=== PATIENT | male | born 1985 | race Caucasian/White ===

== ENCOUNTER 2017-09-20 13:33 | Inpatient (IN) | payer OTHER ==
[2017-09-20] MEDS ORDERED: Mouth Piece, Nicotine* 1 EACH CARTRIDGE INH PRN (14:14)
[2017-09-20] MEDS ORDERED: Nicotine Inhaler* 10 MG AMP INH ONE (14:14)
[2017-09-20 14:33] LABS: ABS Basophils 0 10^3/ul (0-0.2); ABS Eosinophils 0.2 10^3/ul (0-0.6); ABS Monocytes 0.9 10^3/ul (0-0.8); ABS Neutrophils 7.7 10^3/ul (1.5-7.7); ABS Nucleated RBC 0 10^3/ul; Eosinophil % 1.6 % (0-6); Hematocrit 45 % (42-52); Lymphocyte % 18.8 % (25-47); Mean Corpuscular HGB Conc 35 g/dl (31-36); Mean Corpuscular Hemoglobin 31 pg (27-31); Mean Corpuscular Volume 87 fL (80-94); Mean Platelet Volume 8 um3 (7.4-10.4); Nucleated Red Blood Cells % 0; Platelet Count 362 10^3/ul (150-450); Red Blood Count 5.17 10^6/ul (4.0-5.4); Red Cell Distribution Width 13 % (10.5-15); White Blood Count 10.9 10^3/ul (3.5-10.8)
[2017-09-20 14:41] LABS: Urine Appearance Clear; Urine Blood 2+ (Negative); Urine Color Colorless; Urine Ketones Negative (Negative); Urine Protein Negative (Negative); Urine Specific Gravity 1.002 (1.010-1.030); Urine Urobilinogen Negative (Negative)
[2017-09-20 14:57] LABS: EGFR Non-African American 119.4 (>60)
--- NOTE | 2017-09-20 19:07 | ED ---
Psychiatric Complaint - HPI Summary HPI Summary: Pt here w/ SI w/ plan. Reports he has Bipolar type 1 and takes latuda. This was recently increased and he's been feeling better but recent trigger of being laid off at work has triggered financial stress and he now reports SI w/ plan. Plans to take entire bottle of lisinopril and metoprolol - "bradycardia wouldn' t be a bad way to go". Denies taking anything today - just thought about it. H/ o suicide attempt in his youth - took a bottle of adderral and came here for charcoal tx. Has tried with pills a couple of times since but not as severe per pt's account. Denies any physical complaints today - has had a head cold but tolerating well. Smokes daily. Drinks occasionally. No drugs. - History Of Current Complaint Chief Complaint: EDMentalHealth Time Seen by Provider: 09/20/17 13:48 Hx Obtained From: Patient - Allergies/Home Medications Allergies/Adverse Reactions: Allergies Allergy/AdvReac Type Severity Reaction Status Date / Time Erythromycin Allergy Unknown Unknown Verified 01/16/15 17:37 Reaction Details Home Medications: Home Medications Amphetamine/Dextroamph ER(NF) [Adderal XR (NF)] 5 mg PO QAM 09/20/17 [History Confirmed 09/20/17] Lisinopril/HCTZ 20/12.5(NF) [Zestoretic 20/12.5(NF)] 1 tab PO DAILY 09/20/17 [ History Confirmed 09/20/17] Metoprolol Tartrate TAB* [Lopressor TAB*] 50 mg PO DAILY 09/20/17 [History Confirmed 09/20/17] cloNIDine TAB* [Catapres 0.1 MG TAB*] 0.2 mg PO DAILY 09/20/17 [History Confirmed 09/20/17] PMH/Surg Hx/FS Hx/Imm Hx Previously Healthy: Yes Endocrine/Hematology History: Denies: Hx Anticoagulant Therapy, Hx Diabetes, Hx Thyroid Disease Cardiovascular History: Reports: Hx Hypertension - tx'd w/ lisinopril, Other Cardiovascular Problems/Disorders - tachycardia - tx'd w/ metoprolol Denies: Hx Pacemaker/ICD Respiratory History: Denies: Hx Asthma, Hx Chronic Obstructive Pulmonary Disease (COPD) GI History: Denies: Hx Ulcer History: Denies: Hx Renal Disease Musculoskeletal History: Denies: Hx Arthritis, Hx Back Problems, Hx Bursitis, Hx Congenital Bone Abnormalities, Hx Fibromyalgia, Hx Gout, Hx Orthopedic Injury, Hx Osteoporosis, Hx Scoliosis, Hx Tendonitis, Other Musculoskeletal History Neurological History: Denies: Hx Dementia, Hx Seizures Psychiatric History: Reports: Hx Inpatient Treatment, Hx Community Mental Health Tx, Hx Bipolar Disorder, Hx Suicide Attempt - 3 in the past via pills per pt Denies: Hx Eating Disorder, Hx of Violent Episodes Against Others, Hx Substance Abuse - Surgical History Surgery Procedure, Year, and Place: Myringotomy Infectious Disease History: No Infectious Disease History: Denies: Hx Clostridium Difficile, Hx Hepatitis, Hx Human Immunodeficiency Virus (HIV), Hx of Known/Suspected MRSA, Hx Shingles, Hx Tuberculosis, Traveled Outside the [place] in Last 30 Days - Family History Known Family History: Positive: Other - mental health d/o's - Social History 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 Negative: Shortness Of Breath Gastrointestinal: Negative Negative: Abdominal Pain, Vomiting, Diarrhea, Nausea Positive: no symptoms reported Musculoskeletal: Negative Skin: Negative Neurological: Negative Psychological: Other - si All Other Systems Reviewed And Are Negative: Yes Physical Exam Triage Information Reviewed: Yes Vital Signs On Initial Exam: Initial Vitals Temp Pulse Resp BP Pulse Ox 99.2 F 79 18 153/93 99 09/20/17 13:37 09/20/17 13:37 09/20/17 13:37 09/20/17 13:37 09/20/17 13:37 Vital Signs Reviewed: Yes Appearance: Positive: Well-Appearing, No Pain Distress, Well-Nourished Skin: Positive: Warm, Skin Color Reflects Adequate Perfusion, Dry Eyes: Positive: Normal, EOMI, Conjunctiva Clear ENT: Positive: Hearing grossly normal, Pharynx normal, Nasal congestion Neck: Positive: Supple, Nontender, No Lymphadenopathy Respiratory/Lung Sounds: Positive: Clear to Auscultation, Breath Sounds Present. Negative: Rales, Rhonchi, Wheezes Cardiovascular: Positive: Normal, RRR, S1, S2 Abdomen Description: Positive: Nontender, Soft Bowel Sounds: Positive: Present Musculoskeletal: Positive: Normal, Strength/ROM Intact Neurological: Positive: Normal, Sensory/Motor Intact, Alert, Oriented to Person Place, Time, CN Intact II-III Psychiatric: Positive: Other - calm, cooperative, good eye contact - matter of fact. SI with plan as in HPI - [place] Coma Scale Coma Scale Total: 15 Diagnostics - Vital Signs Vital Signs Temp Pulse Resp BP Pulse Ox 09/20/17 17:17 98.3 F 58 16 151/79 100 09/20/17 13:37 99.2 F 79 18 153/93 99 - Laboratory Lab Results: Lab Results 09/20/17 09/20/17 09/20/17 Range/Units 14:01 14:01 14:22 WBC (3.5-10.8) 10^3/ul RBC (4.0-5.4) 10^6/ul Hgb (14.0-18.0) g/dl Hct (42-52) % MCV (80-94) fL MCH (27-31) pg MCHC (31-36) g/dl RDW (10.5-15) % Plt Count (150-450) 10^3/ul MPV (7.4-10.4) um3 Neut % (Auto) (38-83) % Lymph % (Auto) (25-47) % [place] % (Auto) (1-9) % Eos % (Auto) (0-6) % Baso % (Auto) (0-2) % Absolute Neuts (auto) (1.5-7.7) 10^3/ul Absolute Lymphs (auto) (1.0-4.8) 10^3/ul Absolute Monos (auto) (0-0.8) 10^3/ul Absolute Eos (auto) (0-0.6) 10^3/ul Absolute Basos (auto) (0-0.2) 10^3/ul Absolute Nucleated RBC 10^3/ul Nucleated RBC % Sodium 137 (133-145) mmol/L Potassium 3.7 (3.5-5.0) mmol/L Chloride 103 (101-111) mmol/L Carbon Dioxide 26 (22-32) mmol/L Anion Gap 8 (2-11) mmol/L BUN 8 (6-24) mg/dL Creatinine 0.77 (0.67-1.17) mg/dL Est GFR ( Amer) 153.6 (>60) Est GFR (Non-Af Amer) 119.4 (>60) BUN/Creatinine Ratio 10.4 (8-20) Glucose 88 (70-100) mg/dL Calcium 9.5 (8.6-10.3) mg/dL Total Bilirubin 0.30 (0.2-1.0) mg/dL AST 19 (13-39) U/L ALT 30 (7-52) U/L Alkaline Phosphatase 73 (34-104) U/L Total Protein 7.4 (6.4-8.9) g/dL Albumin 4.4 (3.2-5.2) g/dL Globulin 3.0 (2-4) g/dL Albumin/Globulin Ratio 1.5 (1-3) TSH 0.98 (0.34-5.60) mcIU/mL Urine Color Colorless Urine Appearance Clear Urine pH 6.0 (5-9) Ur Specific [place] 1.002 L (1.010-1.030) Urine Protein Negative (Negative) Urine Ketones Negative (Negative) Urine Blood 2+ H (Negative) Urine Nitrate Negative (Negative) Urine Bilirubin Negative (Negative) Urine Urobilinogen Negative (Negative) Ur Leukocyte Esterase Negative (Negative) Urine WBC (Auto) Absent (Absent) Urine RBC (Auto) Trace(0-2/hpf) (Absent) Urine Bacteria Absent (Absent) Urine Glucose Negative (Negative) Salicylates < 2.50 (<30) mg/dL Urine Opiates Screen None detected (None Detect) Acetaminophen < 15 mcg/mL Ur Barbiturates Screen None detected (None Detect) Ur Phencyclidine Scrn None detected (None Detect) Ur Amphetamines Screen None detected (None Detect) U Benzodiazepines Scrn None detected (None Detect) Urine Cocaine Screen None detected (None Detect) U Cannabinoids Screen None detected (None Detect) Serum Alcohol < 10 (<10) mg/dL 09/20/17 Range/Units 14:22 WBC 10.9 H (3.5-10.8) 10^3/ul RBC 5.17 (4.0-5.4) 10^6/ul Hgb 16.0 (14.0-18.0) g/dl Hct 45 (42-52) % MCV 87 (80-94) fL MCH 31 (27-31) pg MCHC 35 (31-36) g/dl RDW 13 (10.5-15) % Plt Count 362 (150-450) 10^3/ul MPV 8 (7.4-10.4) um3 Neut % (Auto) 71.4 (38-83) % Lymph % (Auto) 18.8 L (25-47) % [place] % (Auto) 7.9 (1-9) % Eos % (Auto) 1.6 (0-6) % Baso % (Auto) 0.3 (0-2) % Absolute Neuts (auto) 7.7 (1.5-7.7) 10^3/ul Absolute Lymphs (auto) 2.0 (1.0-4.8) 10^3/ul Absolute Monos (auto) 0.9 H (0-0.8) 10^3/ul Absolute Eos (auto) 0.2 (0-0.6) 10^3/ul Absolute Basos (auto) 0 (0-0.2) 10^3/ul Absolute Nucleated RBC 0 10^3/ul Nucleated RBC % 0 Sodium (133-145) mmol/L Potassium (3.5-5.0) mmol/L Chloride (101-111) mmol/L Carbon Dioxide (22-32) mmol/L Anion Gap (2-11) mmol/L BUN (6-24) mg/dL Creatinine (0.67-1.17) mg/dL Est GFR ( Amer) (>60) Est GFR (Non-Af Amer) (>60) BUN/Creatinine Ratio (8-20) Glucose (70-100) mg/dL Calcium (8.6-10.3) mg/dL Total Bilirubin (0.2-1.0) mg/dL AST (13-39) U/L ALT (7-52) U/L Alkaline Phosphatase (34-104) U/L Total Protein (6.4-8.9) g/dL Albumin (3.2-5.2) g/dL Globulin (2-4) g/dL Albumin/Globulin Ratio (1-3) TSH (0.34-5.60) mcIU/mL Urine Color Urine Appearance Urine pH (5-9) Ur Specific [place] (1.010-1.030) Urine Protein (Negative) Urine Ketones (Negative) Urine Blood (Negative) Urine Nitrate (Negative) Urine Bilirubin (Negative) Urine Urobilinogen (Negative) Ur Leukocyte Esterase (Negative) Urine WBC (Auto) (Absent) Urine RBC (Auto) (Absent) Urine Bacteria (Absent) Urine Glucose (Negative) Salicylates (<30) mg/dL Urine Opiates Screen (None Detect) Acetaminophen mcg/mL Ur Barbiturates Screen (None Detect) Ur Phencyclidine Scrn (None Detect) Ur Amphetamines Screen (None Detect) U Benzodiazepines Scrn (None Detect) Urine Cocaine Screen (None Detect) U Cannabinoids Screen (None Detect) Serum Alcohol (<10) mg/dL Result Diagrams: 09/20/17 14:22 09/20/17 14:22 Lab Statement: Any lab studies that have been ordered have been reviewed, and results considered in the medical decision making process. Course/Dx - Course Course Of Treatment: SI w/ plan. Medically cleared. Pending evaluation. Signed out to Martha Guadarrama PA-C. Stable at time of transition of care. - Differential Dx/Clinical Impression Provider Diagnosis: Suicidal ideation Discharge - Discharge Plan Condition: Guarded Disposition: OTHER Discharge Disposition Comment: signed out Referrals: Rod Pollock MD [Primary Care Provider] -
--- NOTE | 2017-09-20 19:24 | PN ---
Progress Note - Progress Note Date of Service: 09/20/17 Note: Patient signed out by Belkis Mena pending MHE After mental health exam patient will be admitted per Dr Chapman Diagnosis: depression Condition:stable Disposition:Admitted
[2017-09-20] MEDS ORDERED: Mouth Piece, Nicotine* 1 EACH CARTRIDGE INH SCH (22:44)
[2017-09-20] MEDS ORDERED: Al Hydrox/Mg Hydrox/Simet LIQ* 30 ML UDC PO PRN (22:44)
[2017-09-20] MEDS ORDERED: Acetaminophen TAB* 325 MG PO PRN (22:44)
[2017-09-20] MEDS: Metoprolol Tartrate TAB* 50 mg PO SCH (22:56)
[2017-09-20] MEDS ORDERED: cloNIDine TAB* 0.1 MG PO SCH (23:00)
[2017-09-20] MEDS: Lurasidone(*) 120 MG TAB PO SCH (23:12)
[2017-09-20] MEDS: Nicotine Inhaler* 10 MG AMP INH PRN (23:16)
[2017-09-21] MEDS: Vitamin THERAPEUTIC TAB PO SCH (08:23)
[2017-09-21] MEDS: Nicotine PATCH 21 MG/24 HR* PATCH TRANSDERM SCH (08:24)
[2017-09-21] MEDS: Lisinopril TAB* 10 MG PO SCH (08:24)
[2017-09-21] MEDS: Amphetamine MIXED SALT TAB* 10 MG TAB PO SCH (08:24)
[2017-09-21] MEDS: Metoprolol Tartrate TAB* 50 mg PO SCH ×2 (08:26→21:03)
[2017-09-21] MEDS: Hydrochlorothiazide TAB* 25 MG PO SCH (08:27)
[2017-09-21] MEDS: Nicotine Inhaler* 10 MG AMP INH PRN ×4 (09:40→19:56)
[2017-09-21] MEDS ORDERED: Divalproex ER TAB(*) 250 MG PO ONE (14:54)
[2017-09-21] MEDS ORDERED: Divalproex ER TAB(*) 250 MG ONE (16:21)
--- NOTE | 2017-09-21 18:23 | ADMNOTE ---
History - Objective HPI: HISTORY AND PHYSICAL Psychiatric Attending History and Physical NAME: Osmar Tapia : 1985 AGE: 31 PROVIDER: Miguel Chang DO DATE OF ADMISSION:08/22/2018 JUSTIFICATION FOR ADMISSION: Patient has a history of bipolar disorder and has been experiencing depressive symptoms for past 3 weeks. He came to hospital due to suicidal ideation. He felt unsafe at home and was having strong urge to take an overdose of his cardiac medications. Patient is at high risk for self harm which meets criteria for inpatient psychiatric level of care. CHIEF COMPLAINT: 'I have suffered alot of losses which has made me depressed and feeling suicidal" HISTORY OF THE PRESENT ILLNESS: 31 yo male with history of ELENITA,Bipolar type I who brought himself to hospital for admission due to 3 week history of depression and recent onset of suicidal ideation with plan to overdose on his cardiac medications. 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 stressors which are determinants of his currrent depression include job loss, of several family members/friends in past 6 months, insufficient funds to pay his bills. symptoms include amotivation, anergia, anhedonia, suicidal ideation with thoughts of overdosing with his cardiac medications, difficulty falling asleep. patient was admitted as voluntary patient to treat his depression and provide for safety PAST PSYCHIATRIC HISTORY: treated by Dr. Darnell at [facility] for past 8 years. diagnosed with ADHD, bipolar I and ELENITA. patient reports he has had recurrent depressions and does experience 1 to 3 day periods of hypomania with racing thoughts, irritability, increased goal direction. reports he had one of these episodes the day prior to admission. patient has been maintaine on Latuda for many years with good success. Latuda was increased from 80 to 120 mg about [address] Darnell. Patient had been maintained on Depakote ER 500 mg since last discharged from psychiatric hospital 4 years ago. patient reports 3 past suicide attempts. Early 20's took an overdose, cut his wrists superficially in 2012 and 2013. Last two suicide attempts he was admitted to [facility]. Past medication trials: Paxil "helped very little", Lamictal but doesnt remember if it helped. no other medications that he can remember. SUBSTANCE ABUSE HISTORY: denies. drinks 6 beers per month. smoked cannabis in teens but stopped using at age 21. Tobacco use: 1 PPD PAST MEDICAL HISTORY: reports history of "tachycardia" and hypertensin. both treated by his PCP reports he had a cardiac workup including holter monitoring which was negative for arrythmia. CURRENT MEDICATIONS: Lisinopril 20 mg daily Metoprolol 50 mg BID Hydrochlorthiazide 12.5 mg QD clonidine 0.4 mg QHS (for insomnia and anxiety) Adderall XR 5 mg QAM ALLERGIES: Erythromycin FAMILY PSYCHIATRIC HISTORY: Father alcohol dependence; maternal uncle completed suicide; maternal grandfather- history of psychiatric hospitalizations. FAMILY/PSYCHOSOCIAL HISTORY: Born in [place] and raised in [place], [place]. primarily raised by his mother. has no siblings. Got his license to be an EMT and volunteers 40 hours per week. worked at [employer] since March 2013. living in [place] currently. 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 worked at [employer] in past but was emotionally overwhelmed so he quit. reports ptsd symptoms from his exposure to trauma/crisis while being EMT. REVIEW OF SYSTEMS: all noncontributory per hospitalist Dr. Darrell Haley H and P on 2017 PHYSICAL EXAMINATION: UNREMARKABLE (NORMAL PHYSICAL EXAMINATION) per hospitalist Dr. Darrell White's H and P on 09/20/2017. Vital Signs HR 88 BP 140/82 RR12 Temp: 98.6 MENTAL STATUS EXAMINATION: Patient is well developed and nourished male. he was dressed casually and had normal hygiene. established rapport easily, made good eye contact. speech normal rate and volume. normal fluency and spontaneity. no psychomotor agitation or slowing Mood: dysphoric affect: full range and congruent with mood. Thought process goal directed coherent and organized. Thought content: endorses low energy, poor motivation, early insomnia, intermittent agitation, suicidal thoughts but contracts to let staff know if he has urge to act on this thoughts. early insomnia. good appetite. Alert and fully oriented. denies HI , AH,VH, paranoid ideation no evidence of delusions. denies obsessions, compulsions. reports moderate anxiety. Insight and judgment are good LABORATORY DATA: Laboratory Last Values WBC 10.9 10^3/ul (3.5-10.8) H 09/20/17 14:22 RBC 5.17 10^6/ul (4.0-5.4) 09/20/17 14:22 Hgb 16.0 g/dl (14.0-18.0) 09/20/17 14:22 Hct 45 % (42-52) 09/20/17 14:22 MCV 87 fL (80-94) 09/20/17 14:22 MCH 31 pg (27-31) 09/20/17 14:22 MCHC 35 g/dl (31-36) 09/20/17 14:22 RDW 13 % (10.5-15) 09/20/17 14:22 Plt Count 362 10^3/ul (150-450) 09/20/17 14:22 MPV 8 um3 (7.4-10.4) 09/20/17 14:22 Neut % (Auto) 71.4 % (38-83) 09/20/17 14:22 Lymph % (Auto) 18.8 % (25-47) L 09/20/17 14:22 [place] % (Auto) 7.9 % (1-9) 09/20/17 14:22 Eos % (Auto) 1.6 % (0-6) 09/20/17 14:22 Baso % (Auto) 0.3 % (0-2) 09/20/17 14:22 Absolute Neuts (auto) 7.7 10^3/ul (1.5-7.7) 09/20/17 14:22 Absolute Lymphs (auto) 2.0 10^3/ul (1.0-4.8) 09/20/17 14:22 Absolute Monos (auto) 0.9 10^3/ul (0-0.8) H 09/20/17 14:22 Absolute Eos (auto) 0.2 10^3/ul (0-0.6) 09/20/17 14:22 Absolute Basos (auto) 0 10^3/ul (0-0.2) 09/20/17 14:22 Absolute Nucleated RBC 0 10^3/ul 09/20/17 14:22 Nucleated RBC % 0 09/20/17 14:22 Sodium 137 mmol/L (133-145) 09/20/17 14:22 Potassium 3.7 mmol/L (3.5-5.0) 09/20/17 14:22 Chloride 103 mmol/L (101-111) 09/20/17 14:22 Carbon Dioxide 26 mmol/L (22-32) 09/20/17 14:22 Anion Gap 8 mmol/L (2-11) 09/20/17 14:22 BUN 8 mg/dL (6-24) 09/20/17 14:22 Creatinine 0.77 mg/dL (0.67-1.17) 09/20/17 14:22 Est GFR ( Amer) 153.6 (>60) 09/20/17 14:22 Est GFR (Non-Af Amer) 119.4 (>60) 09/20/17 14:22 BUN/Creatinine Ratio 10.4 (8-20) 09/20/17 14:22 Glucose 88 mg/dL (70-100) 09/20/17 14:22 Calcium 9.5 mg/dL (8.6-10.3) 09/20/17 14:22 Total Bilirubin 0.30 mg/dL (0.2-1.0) 09/20/17 14:22 AST 19 U/L (13-39) 09/20/17 14:22 ALT 30 U/L (7-52) 09/20/17 14:22 Alkaline Phosphatase 73 U/L (34-104) 09/20/17 14:22 Total Protein 7.4 g/dL (6.4-8.9) 09/20/17 14:22 Albumin 4.4 g/dL (3.2-5.2) 09/20/17 14:22 Globulin 3.0 g/dL (2-4) 09/20/17 14:22 Albumin/Globulin Ratio 1.5 (1-3) 09/20/17 14:22 TSH 0.98 mcIU/mL (0.34-5.60) 09/20/17 14:22 Urine Color Colorless 09/20/17 14:01 Urine Appearance Clear 09/20/17 14:01 Urine pH 6.0 (5-9) 09/20/17 14:01 Ur Specific [place] 1.002 (1.010-1.030) L 09/20/17 14:01 Urine Protein Negative (Negative) 09/20/17 14:01 Urine Ketones Negative (Negative) 09/20/17 14:01 Urine Blood 2+ (Negative) H 09/20/17 14:01 Urine Nitrate Negative (Negative) 09/20/17 14:01 Urine Bilirubin Negative (Negative) 09/20/17 14:01 Urine Urobilinogen Negative (Negative) 09/20/17 14:01 Ur Leukocyte Esterase Negative (Negative) 09/20/17 14:01 Urine WBC (Auto) Absent (Absent) 09/20/17 14:01 Urine RBC (Auto) Trace(0-2/hpf) (Absent) 09/20/17 14:01 Urine Bacteria Absent (Absent) 09/20/17 14:01 Urine Glucose Negative (Negative) 09/20/17 14:01 Salicylates < 2.50 mg/dL (<30) 09/20/17 14:22 Urine Opiates Screen None detected (None Detect) 09/20/17 14:01 Acetaminophen < 15 mcg/mL 09/20/17 14:22 Ur Barbiturates Screen None detected (None Detect) 09/20/17 14:01 Ur Phencyclidine Scrn None detected (None Detect) 09/20/17 14:01 Ur Amphetamines Screen None detected (None Detect) 09/20/17 14:01 U Benzodiazepines Scrn None detected (None Detect) 09/20/17 14:01 Urine Cocaine Screen None detected (None Detect) 09/20/17 14:01 U Cannabinoids Screen None detected (None Detect) 09/20/17 14:01 Serum Alcohol < 10 mg/dL (<10) 09/20/17 14:22 IMPRESSION: 31 yo hiistory of bipolar I, ADHD, and ELENITA who presents with mixed mood symptoms which includes 3 week history of depressive syndrome and one day of hypomania (yesterday). significant factors which may be partial determinants to his mood instability include discontinuation of depakote ER 2 weeks ago, of several friends/relatives in recent past, loss of job 3 weeks ago due to "lay offs" and financial probelms. patient has been having suicidal ideation with plan to overdose. He requires imminent inpatient level of care due to high risk for injury to self in order to provide for his safety and to provide treatment to stabalize his mood. DIAGNOSES: Bipolar Disorder unspecified. currently depressed severe with suicidal ideation Generalized anxiety disorder (by history) ADHD (by history) Hypertension history of sinus tachycardia PLAN: Admit to U on q 15 min observation patient will be voluntary admission status individual, group and milieu therapies discharge planning will coordinate treatment efforts with outpatient provider restart Depakote ER 1000 mg qhs for mood stabliazation continue Latuda 120 mg qd with dinner start Klonopin 0.25 mg qam and 0.5 mg qhs continue all outpatient medications as listed above nicotine replacement written as well
[2017-09-21] MEDS: clonazePAM TAB(*) 1 MG PO SCH (21:00)
[2017-09-21] MEDS: cloNIDine TAB* 0.1 MG PO SCH (21:01)
[2017-09-21] MEDS: Nicotine Patch Removal NOTE PATCH OFF SCH (21:03)
[2017-09-21] MEDS: Lurasidone(*) 120 MG TAB PO SCH (21:03)
[2017-09-22] MEDS: Amphetamine MIXED SALT TAB* 10 MG TAB PO SCH (08:18)
[2017-09-22] MEDS: Hydrochlorothiazide TAB* 25 MG PO SCH (08:19)
[2017-09-22] MEDS: Lisinopril TAB* 10 MG PO SCH (08:20)
[2017-09-22] MEDS: Vitamin THERAPEUTIC TAB PO SCH (08:21)
[2017-09-22] MEDS: Metoprolol Tartrate TAB* 50 mg PO SCH ×2 (08:21→21:01)
[2017-09-22] MEDS: Nicotine Inhaler* 10 MG AMP INH PRN ×4 (08:22→21:04)
[2017-09-22] MEDS: Nicotine PATCH 21 MG/24 HR* PATCH TRANSDERM SCH (08:24)
[2017-09-22] MEDS ORDERED: clonazePAM TAB(*) 0.5 MG PO SCH (09:00)
[2017-09-22] MEDS ORDERED: Divalproex ER TAB(*) 500 MG PO ONE (14:54)
[2017-09-22] MEDS ORDERED: clonazePAM TAB(*) 0.5 MG PO ONE (16:00)
[2017-09-22] MEDS ORDERED: Gabapentin CAP(*) 300 MG PO PRN (16:04)
--- NOTE | 2017-09-22 16:13 | PN ---
Subjective - Subjective Date of Service: 09/22/17 Subjective: Psychiatric Attending Neo note participating in groups and cooperative with staff report today that he has been feeling agitated and irritable throughout the day. found out that patient only received 250 mg twice yesterday rather than 500 mg twice which was ordered MSE: well related neatly dressed good hygiene Thought process coherent Thought content: still reports feeling hopeless, no intenton to harm self but feels helpless. no psychotic symptoms mood: irritable affect anxious, full range alert and fully oriented insight and judgment good Impression: Bipolar Disorder type I. patient likely has a mixed presentation at present time as he reports irritability, agitation, dysphoria, passive suicidal thoughts Plan: restarted on Depakote which is treatment for mixed affective episode patient had been on this medication in past for several years and stopped it in recent past Depakote ER 1000 mg QHS Latuda 120 mg qhs klonopin to be increased to 0.5 mg BID (AM and HS) to target anxiety/agitation will contact outpatient provider to coordinate care Nicotine replacement therapy will add nicotine patch Plan - Plan Treatment Plan: Name: YVONNE NOVOA Birthdate: 1985 [id number]
--- NOTE | 2017-09-22 16:26 | PN ---
MHU: Group Therapy Note - Service Type Service Type: [id number] Group Psychotherapy - Medication Education Group: Patient was attentive and participatory in group, and remained in good behavioral control. Patient expressed positive insights regarding relevant treatment interventions. Patient stated understanding of material discussed and had appropriate questions.
[2017-09-22] MEDS ORDERED: Divalproex ER TAB(*) 500 MG PO SCH (21:00)
[2017-09-22] MEDS: Lurasidone(*) 120 MG TAB PO SCH (21:00)
[2017-09-22] MEDS: cloNIDine TAB* 0.1 MG PO SCH (21:01)
[2017-09-22] MEDS: clonazePAM TAB(*) 1 MG PO SCH (21:02)
[2017-09-22] MEDS: Nicotine Patch Removal NOTE PATCH OFF SCH (21:18)
[2017-09-23] MEDS: Hydrochlorothiazide TAB* 25 MG PO SCH (08:53)
[2017-09-23] MEDS: Lisinopril TAB* 10 MG PO SCH (08:54)
[2017-09-23] MEDS: Vitamin THERAPEUTIC TAB PO SCH (08:55)
[2017-09-23] MEDS: Nicotine PATCH 21 MG/24 HR* PATCH TRANSDERM SCH (08:55)
[2017-09-23] MEDS: Metoprolol Tartrate TAB* 100 MG TAB PO SCH (08:57)
[2017-09-23] MEDS: Nicotine Inhaler* 10 MG AMP INH PRN ×4 (08:58→20:38)
[2017-09-23] MEDS: Amphetamine MIXED SALT TAB* 10 MG TAB PO SCH (08:59)
[2017-09-23] MEDS ORDERED: clonazePAM TAB(*) 0.5 MG PO SCH (09:00)
--- NOTE | 2017-09-23 13:12 | PN ---
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 patient has severe ADHD which is undertreated. cant tolerate stimulants at higher dose than 5mg of adderall due to increased agitation. ritalin causes agitation as well. never tried strattera mother is narcissistic personality. father provided little parenting to him. MSE: irritable and dysphoric speech increased volume and rate. not pressured reports feeling agitated and restless. cant occupy his time alone or relax. needs constant stimulation of company of others or dictating his journal on phone or using phone. becomes very sad when he is just left to his own devices without being engaged. insight fair judgment good TC: no psychotic symptoms. but reports that he feels "passive wish" but then states that he has no intention of acting on those thoughts or feelings Impression: Bipolar disorder type I mixed affective symptoms ADHD severe Borderline Personality Disorder Generalized Anxiety disorder Plan: patient agrees to stay for medication adjustment till next tuesday Increase Klonopin to 0.5 mgTID Start Gabapentin 300 mg TID Decrease Clonidine to 0.2 mg qhs Increase Depakote ER to 1250 mg qhs to treat mood instability Start Strattera 25 mgAM to target ADHD Latuda 120 mg QHS VPA level on Tuesday
[2017-09-23] MEDS: Nicotine PATCH 14 MG/24 HR* PATCH TRANSDERM SCH (13:33)
[2017-09-23] MEDS ORDERED: Mouth Piece, Nicotine* 1 EACH CARTRIDGE INH PRN (13:37)
[2017-09-23] MEDS: Gabapentin CAP(*) 300 MG PO SCH ×2 (16:01→20:35)
[2017-09-23] MEDS: clonazePAM TAB(*) 0.5 MG PO SCH ×2 (16:01→20:36)
[2017-09-23] MEDS: Divalproex ER TAB(*) 250 MG PO SCH (20:34)
[2017-09-23] MEDS: Divalproex ER TAB(*) 500 MG PO SCH (20:34)
[2017-09-23] MEDS: cloNIDine TAB* 0.1 MG PO SCH (20:35)
[2017-09-23] MEDS: Lurasidone(*) 120 MG TAB PO SCH (20:37)
[2017-09-23] MEDS: Nicotine Patch Removal NOTE PATCH OFF SCH (22:28)
[2017-09-24] MEDS: Nicotine PATCH 14 MG/24 HR* PATCH TRANSDERM SCH (08:35)
[2017-09-24] MEDS: Lisinopril TAB* 10 MG PO SCH (08:35)
[2017-09-24] MEDS: Hydrochlorothiazide TAB* 25 MG PO SCH (08:36)
[2017-09-24] MEDS: Gabapentin CAP(*) 300 MG PO SCH ×3 (08:37→21:26)
[2017-09-24] MEDS: Metoprolol Tartrate TAB* 100 MG TAB PO SCH (08:37)
[2017-09-24] MEDS: Vitamin THERAPEUTIC TAB PO SCH (08:37)
[2017-09-24] MEDS: Amphetamine MIXED SALT TAB* 10 MG TAB PO SCH (08:38)
[2017-09-24] MEDS: clonazePAM TAB(*) 0.5 MG PO SCH ×3 (08:38→21:25)
[2017-09-24] MEDS: Nicotine Inhaler* 10 MG AMP INH PRN ×5 (08:49→21:04)
[2017-09-24] MEDS: Divalproex ER TAB(*) 500 MG PO SCH (21:02)
[2017-09-24] MEDS: cloNIDine TAB* 0.1 MG PO SCH (21:02)
[2017-09-24] MEDS: Lurasidone(*) 120 MG TAB PO SCH (21:03)
[2017-09-24] MEDS: Divalproex ER TAB(*) 250 MG PO SCH (21:03)
[2017-09-24] MEDS: Nicotine Patch Removal NOTE PATCH OFF SCH (21:29)
[2017-09-25] MEDS: Hydrochlorothiazide TAB* 25 MG PO SCH (08:29)
[2017-09-25] MEDS: Amphetamine MIXED SALT TAB* 10 MG TAB PO SCH (08:29)
[2017-09-25] MEDS: Lisinopril TAB* 10 MG PO SCH (08:30)
[2017-09-25] MEDS: clonazePAM TAB(*) 0.5 MG PO SCH ×3 (08:31→20:10)
[2017-09-25] MEDS: Metoprolol Tartrate TAB* 100 MG TAB PO SCH (08:31)
[2017-09-25] MEDS: Gabapentin CAP(*) 300 MG PO SCH ×3 (08:33→20:09)
[2017-09-25] MEDS: CMCS: Atomoxetine(NF) 25 MG CAP PO SCH (08:34)
[2017-09-25] MEDS: Nicotine Inhaler* 10 MG AMP INH PRN ×4 (08:36→20:11)
[2017-09-25] MEDS: Nicotine PATCH 14 MG/24 HR* PATCH TRANSDERM SCH (08:37)
[2017-09-25] MEDS: Vitamin THERAPEUTIC TAB PO SCH (08:37)
[2017-09-25] MEDS ORDERED: ATOMOXETINE 60 MG PO SCH (09:00)
--- NOTE | 2017-09-25 17:07 | PN ---
Subjective - Subjective Subjective: Yvonne reports doing good, has noted that he becomes anxious when bored, he described restful sleep, he avidly denies SI/HI or side effects from prescribed medications. Per staff, he remains safe on checks and adherent to unit's routines. He verbalizes not wanting to be discharged on Gabapentin because of sedation, agrees to further discuss this with Dr. Chang in AM. Objective - Appearance Appearance: Healthy Appearing Dysmorphic Features: No Hygiene: Normal Grooming: Well Kept - Behavior Psychomotor Activities: Normal Exhibits Abnormal Movement: No - Attitude and Relatedness Attitude and Relatedness: Cooperative Eye Contact: Fair - Speech Quality: Unpressured Latencies: Normal Quantity: Appropriate - Mood Patient's Decription of Mood: "Okay" - Affect Observed Affect: Non-labile - Thought Process Patient's Thought Process: Coherent, Goal Directed Thought Content: No Passive Wish, No Suicidal Planning, No Homicidal Ideation, No Paranoid Ideation - Sensorium Experiencing Hallucinations: No, Sensorium is Clear - Level of Consciousness Level of Consciousness: Alert Orientation: Yes Intact - Impulse Control Impulse Control: Intact - Insight and Judgement Insight and Judgement: Fair - Group Participation Particating in Group Activities: Yes - Medication Management Medication Management Adherence: Yes Assessment - Assessment Merits Inpatient Hospitalization: For Ongoing Evaluation, Consolidate Improvements, For Discharge Planning Inpatient DSM-IV Dx: ELENITA; ADHD; Borderline traits. Clinical Impression: Stabilizing in this structured setting, tolerating medication trials, needs continued admission for consolidation. Plan - Plan Treatment Plan: Name: YVONNE NOVOA Birthdate: 1985 [id number] Continued Medication Management: Continue Outpt Medication Medications: Current Medications Acetaminophen (Tylenol Tab*) 650 mg PO Q4H PRN PRN Reason: PAIN or TEMP > 101 F Al Hydrox/Mg Hydrox/Simethicone (Maalox Plus*) 30 ml PO Q4H PRN PRN Reason: INDIGESTION Amphetamine/Dextroamphetamine (Adderall Tab*) 5 mg PO DAILY@0800 [facility] Last Admin: 09/25/17 08:29 Dose: 5 mg Atomoxetine HCl (Strattera(Nf)) 25 mg PO DAILY [facility] Last Admin: 09/25/17 08:34 Dose: 25 mg Clonazepam (Klonopin Tab(*)) 0.5 mg PO TID@09,16,21 [facility] Last Admin: 09/25/17 16:06 Dose: 0.5 mg Clonidine HCl (Catapres Tab*) 0.2 mg PO BEDTIME [facility] Last Admin: 09/24/17 21:02 Dose: 0.2 mg Device (Nicotine Mouth Piece*) 1 each INH .CARTRIDGE [facility] Divalproex Sodium (Depakote Er Tab(*)) 1,000 mg PO BEDTIME [facility] Last Admin: 09/24/17 21:02 Dose: 1,000 mg Divalproex Sodium (Depakote Er Tab(*)) 250 mg PO BEDTIME [facility] Last Admin: 09/24/17 21:03 Dose: 250 mg Gabapentin (Neurontin Cap(*)) 300 mg PO TID@,, [facility] Last Admin: 09/25/17 16:07 Dose: 300 mg Hydrochlorothiazide (Hydrodiuril Tab*) 12.5 mg PO QAM [facility] Last Admin: 09/25/17 08:29 Dose: 12.5 mg Lisinopril (Prinivil Tab*) 20 mg PO QAM [facility] Last Admin: 09/25/17 08:30 Dose: 20 mg Lurasidone HCl (Latuda) 120 mg PO BEDTIME [facility] Last Admin: 09/24/17 21:03 Dose: 120 mg Metoprolol Tartrate (Lopressor Tab*) 100 mg PO DAILY@09 [facility] Last Admin: 09/25/17 08:31 Dose: 100 mg Multivitamins (Theragran Tab*) 1 tab PO DAILY [facility] Last Admin: 09/25/17 08:37 Dose: 1 tab Nicotine (Nicotine Patch 14 Mg/24 Hr*) 1 patch TRANSDERM DAILY [facility] Last Admin: 09/25/17 08:37 Dose: Not Given Nicotine (Nicotine Inhaler*) 10 mg INH Q2H PRN PRN Reason: CRAVING Last Admin: 09/25/17 16:08 Dose: 10 mg Pharmacy Profile Note (Nicotine Patch Removal Note*) 1 note PATCH OFF 2100 [facility] Last Admin: 09/24/17 21:29 Dose: Not Given - Discharge Plan Discharge Plan: Outpatient Follow Up Outpatient Program: TBD
[2017-09-25] MEDS: Divalproex ER TAB(*) 250 MG PO SCH (20:08)
[2017-09-25] MEDS: Divalproex ER TAB(*) 500 MG PO SCH (20:08)
[2017-09-25] MEDS: Lurasidone(*) 120 MG TAB PO SCH (20:08)
[2017-09-25] MEDS: cloNIDine TAB* 0.1 MG PO SCH (20:08)
[2017-09-25] MEDS: Nicotine Patch Removal NOTE PATCH OFF SCH (20:11)
[2017-09-26] MEDS: Hydrochlorothiazide TAB* 25 MG PO SCH (08:04)
[2017-09-26] MEDS: Lisinopril TAB* 10 MG PO SCH (08:05)
[2017-09-26] MEDS: CMCS: Atomoxetine(NF) 25 MG CAP PO SCH (08:06)
[2017-09-26] MEDS: Amphetamine MIXED SALT TAB* 10 MG TAB PO SCH (08:06)
[2017-09-26] MEDS: Vitamin THERAPEUTIC TAB PO SCH (08:07)
[2017-09-26] MEDS: Gabapentin CAP(*) 300 MG PO SCH ×3 (08:08→21:09)
[2017-09-26] MEDS: clonazePAM TAB(*) 0.5 MG PO SCH ×3 (08:10→21:09)
[2017-09-26] MEDS: Metoprolol Tartrate TAB* 100 MG TAB PO SCH (08:11)
[2017-09-26] MEDS: Nicotine PATCH 14 MG/24 HR* PATCH TRANSDERM SCH (08:12)
[2017-09-26] MEDS: Nicotine Inhaler* 10 MG AMP INH PRN ×4 (09:59→21:13)
--- NOTE | 2017-09-26 11:37 | PN ---
Subjective - Subjective Subjective: Psychiatric Attending Progress Note Reviewed nursing/physicians notes over weekend. patient did well. He attended groups. overall reported that klonopin is helping with his anxiety. patient did not report suicidal ideation over weekend. He reports less dysphoric mood. continues to be preoccupied with making mistakes at work, worrying that he will be fired. told me to day that although the gabapentin and the Strattera is helping him, he does not wish to continue these medications upon discharge. Patient was unable to give me a reason. I explained that I would discharge him when he was stable and would indeed send all current medications to his pharmacy and that It was my hope that he will take the medications after discharged exactly as I prescribed them as I feel it would be in his best interests. alot of comments over the weekend about being restless and easily bored. Objective - Appearance Appearance: Well Developed/Nourished Dysmorphic Features: No Hygiene: Normal Grooming: Fairly Well Kept - Behavior Psychomotor Activities: Normal Exhibits Abnormal Movement: No - Attitude and Relatedness Attitude and Relatedness: help rejecting, Needy, but well related Eye Contact: Good - Speech Quality: Unpressured Latencies: Normal Quantity: Appropriate - Mood Patient's Decription of Mood: "Anxious" - Affect Observed Affect: Tense Affect Consistent with: Dysphoria - Thought Process Patient's Thought Process: Coherent Thought Content: No Passive Wish, No Suicidal Planning, No Homicidal Ideation, No Paranoid Ideation - Sensorium Experiencing Hallucinations: No, Sensorium is Clear Type of Hallucinations: Visual: No, Auditory: No, Command: No - Level of Consciousness Level of Consciousness: Alert Orientation: Yes Intact, Yes Orientated to Time, Yes Orientated to Place, Yes Orientated to Person - Impulse Control Impulse Control: Tenuous - Insight and Judgement Insight and Judgement: Fair - Group Participation Particating in Group Activities: Yes - Medication Management Medication Management Adherence: Yes Assessment - Assessment Merits Inpatient Hospitalization: For Stabilization, Consolidate Improvements, For Discharge Planning Inpatient DSM-IV Dx: Bipolar Disorder Depressed, Generalized Anxiety Disorder, Borderline. Personality Disorder, ADHD combined type Clinical Impression: 31 yo admitted with bipolar depression and suicidal ideation in context of losing his job. patient has severe character pathology due to dysfunctional upbringing. He is unable to self sooth and cannot tolerate being alone. He also has severe ADHD and Generalized anxiety. He is doing better. His suicidal ideation has remitted. He is less anxious and less dysphoric with addition of klonopin, Gabapentin, Strattera and Depakote ER. Plan - Plan Treatment Plan: Increase Atomoxetine to 40 mg qam Klonopin 0.5 mg TID Clonidine 0.2 mg QHS Device (Nicotine Mouth Piece*) 1 each INH .CARTRIDGE [facility] Depakote ER 1250 mg qhs VPA level pending for today Gabapentin 300 mg TID Hydrochlorothiazide (Hydrodiuril Tab*) 12.5 mg PO QAM [facility] Last Admin: 09/26/17 08:04 Dose: 12.5 mg Lisinopril (Prinivil Tab*) 20 mg PO QAM [facility] Last Admin: 09/26/17 08:05 Dose: 20 mg Lurasidone HCl (Latuda) 120 mg PO BEDTIME [facility] Last Admin: 09/25/17 20:08 Dose: 120 mg Metoprolol Tartrate (Lopressor Tab*) 100 mg PO DAILY@09 [facility] Last Admin: 09/26/17 08:11 Dose: 100 mg Multivitamins (Theragran Tab*) 1 tab PO DAILY [facility] Last Admin: 09/26/17 08:07 Dose: 1 tab Nicotine (Nicotine Patch 14 Mg/24 Hr*) 1 patch TRANSDERM DAILY [facility] Last Admin: 09/26/17 08:12 Dose: Not Given Nicotine (Nicotine Inhaler*) 10 mg INH Q2H PRN PRN Reason: CRAVING Last Admin: 09/26/17 09:59 Dose: 10 mg Discharge will be for this Tuesday
[2017-09-26] MEDS: Divalproex ER TAB(*) 500 MG PO SCH (21:09)
[2017-09-26] MEDS: Divalproex ER TAB(*) 250 MG PO SCH (21:09)
[2017-09-26] MEDS: cloNIDine TAB* 0.1 MG PO SCH (21:10)
[2017-09-26] MEDS: Nicotine Patch Removal NOTE PATCH OFF SCH (21:10)
[2017-09-26] MEDS: Lurasidone(*) 120 MG TAB PO SCH (21:10)
[2017-09-27] MEDS: Gabapentin CAP(*) 300 MG PO SCH ×3 (08:42→21:22)
[2017-09-27] MEDS: Metoprolol Tartrate TAB* 100 MG TAB PO SCH (08:42)
[2017-09-27] MEDS: Vitamin THERAPEUTIC TAB PO SCH (08:43)
[2017-09-27] MEDS: Lisinopril TAB* 10 MG PO SCH (08:43)
[2017-09-27] MEDS: Hydrochlorothiazide TAB* 25 MG PO SCH (08:44)
[2017-09-27] MEDS: Amphetamine MIXED SALT TAB* 10 MG TAB PO SCH (08:44)
[2017-09-27] MEDS: CMCS: Atomoxetine(NF) 25 MG CAP PO SCH (08:45)
[2017-09-27] MEDS: Nicotine Inhaler* 10 MG AMP INH PRN ×4 (08:45→21:23)
[2017-09-27] MEDS: clonazePAM TAB(*) 0.5 MG PO SCH ×3 (09:10→21:22)
[2017-09-27] MEDS: Nicotine PATCH 14 MG/24 HR* PATCH TRANSDERM SCH (09:41)
--- NOTE | 2017-09-27 11:32 | PN ---
MHU: Group Therapy Note - Service Type Service Type: [id number] Group Psychotherapy - Cognitive Behavioral Group Therapy ( CBT):Patient was attentive and participatory in CBT programming this morning, and remained in good behavioral control. Patient expressed positive insights regarding relevant treatment interventions and goals.
--- NOTE | 2017-09-27 17:55 | PN ---
Subjective - Subjective Subjective: Psychiatric Attending Progress Note: patient reports that he feels that he will be ready for discharge tomorrow reports that medication changes have helped mood. He states he feels less irritable, less restless, and that he no longer is having suicidal thoughts. denies side effects from medication including dizziness, blurry vision, unsteadiness, nausea, vomiting, loss of appetite, oversedation, headache, rapid heart rate, or involuntary muscle movements. Depakote Level therapeutic at 90 from yesterday Objective - Appearance Appearance: Well Developed/Nourished Dysmorphic Features: No Hygiene: Normal Grooming: Well Kept - Behavior Psychomotor Activities: Normal Exhibits Abnormal Movement: No - Attitude and Relatedness Attitude and Relatedness: Cooperative Eye Contact: Good - Speech Quality: Unpressured Latencies: Normal Quantity: Appropriate - Mood Patient's Decription of Mood: "Good" - Affect Observed Affect: Good Affect Consistent with: Euthymia - Thought Process Patient's Thought Process: Coherent Thought Content: No Passive Wish, No Suicidal Planning, No Homicidal Ideation, No Paranoid Ideation - Sensorium Experiencing Hallucinations: No, Sensorium is Clear Type of Hallucinations: Visual: No, Auditory: No, Command: No - Level of Consciousness Level of Consciousness: Alert Orientation: Yes Intact, Yes Orientated to Time, Yes Orientated to Place, Yes Orientated to Person - Impulse Control Impulse Control: Intact - Group Participation Particating in Group Activities: Yes - Medication Management Medication Management Adherence: Yes Assessment - Assessment Inpatient DSM-IV Dx: Bipolar Disorder Depressed, Generalized Anxiety Disorder, Borderline. Personality Disorder, ADHD combined type Clinical Impression: 31 yo admitted with bipolar depression and suicidal ideation in context of losing his job. patient has severe character pathology due to dysfunctional upbringing. He is unable to self sooth and cannot tolerate being alone. He also has severe ADHD and Generalized anxiety. He is doing better. His suicidal ideation has remitted. He is less anxious and less dysphoric with addition of klonopin, Gabapentin, Strattera and Depakote ER. Plan - Plan Treatment Plan: Plan: discharge planned for tomorrow f/u at [facility] continue medication regimen unchanged
[2017-09-27] MEDS: cloNIDine TAB* 0.1 MG PO SCH (21:18)
[2017-09-27] MEDS: Lurasidone(*) 120 MG TAB PO SCH (21:18)
[2017-09-27] MEDS: Divalproex ER TAB(*) 500 MG PO SCH (21:19)
[2017-09-27] MEDS: Divalproex ER TAB(*) 250 MG PO SCH (21:20)
[2017-09-27] MEDS: Nicotine Patch Removal NOTE PATCH OFF SCH (21:30)
[2017-09-28 07:50] VITALS: BP 123/62
[2017-09-28] MEDS: Hydrochlorothiazide TAB* 25 MG PO SCH (08:30)
[2017-09-28] MEDS: Amphetamine MIXED SALT TAB* 10 MG TAB PO SCH (08:31)
[2017-09-28] MEDS: Lisinopril TAB* 10 MG PO SCH (08:31)
[2017-09-28] MEDS: Vitamin THERAPEUTIC TAB PO SCH (08:32)
[2017-09-28] MEDS: clonazePAM TAB(*) 0.5 MG PO SCH (08:33)
[2017-09-28] MEDS: Gabapentin CAP(*) 300 MG PO SCH (08:34)
[2017-09-28] MEDS: Nicotine Inhaler* 10 MG AMP INH PRN ×2 (08:34→10:34)
[2017-09-28] MEDS: Metoprolol Tartrate TAB* 100 MG TAB PO SCH (08:35)
[2017-09-28] MEDS: CMCS: Atomoxetine(NF) 25 MG CAP PO SCH (08:35)
[2017-09-28] MEDS: Nicotine PATCH 14 MG/24 HR* PATCH TRANSDERM SCH (08:49)
--- NOTE | 2017-09-28 11:12 | PN ---
MHU: Group Therapy Note - Service Type Service Type: [id number] Group Psychotherapy - Cognitive Behavioral Group Therapy ( CBT):Patient was attentive and participatory in CBT programming this morning, and remained in good behavioral control. Patient expressed positive insights regarding relevant treatment interventions and goals.
--- NOTE | 2017-09-28 12:40 | DS ---
Subjective - Subjective Subjective: DISCHARGE SUMMARY PATIENT: Osmar Tapia : 1985 AGE: 31 PROVIDER: Miguel Chang D.O. DATE OF ADMISSION: 09/21/2017 DATE OF DISCHARGE: 09/28/2017 DISCHARGE DIAGNOSES: Bipolar Disorder unspecified. currently depressed severe with suicidal ideation Generalized anxiety disorder (by history) ADHD (by history) Hypertension history of sinus tachycardia CONDITION AT THE TIME OF DISCHARGE: improved, stable MENTAL STATUS EXAM AT DISCHARGE: patient was well related, made good eye contact, and was dressed neatly. He had good hygien. speech showed normal rate, volume, rhythm, and normal fluency and spontaneity. normal psychomotor behavior. He described his mood as being mildly anxious but denied feeling depressed, sad, irritable or manic. affect was full range with normal amplitude. Thought processes were goal directed, organized and coherent. Thought content revealed no evidence of psychotic symptoms and patient denied hallucinations, paranoid ideation, grandiosity. Patient denied suicidal ideation, intention, or plan. He reported that thoughts of self harm had remitted completely several days prior to discharge. He was alert and fully oriented in all spheres. He reported improved concentration, attention span and diminished restlessness. He showed motivation to follow up with outpatient mental health treatment at [facility] and to take his psychiatric medication regimen as prescribed. DISCHARGE INSTRUCTIONS: A. MEDICATIONS: Adderall 5 mg PO QAM (ADHD) Strattera 40 mg PO QAM (ADHD) Klonopin 0.5 mg PO TID (anxiety) Clonidine 0.2 mg PO QHS (insomnia) Depakote ER 1000 mg PO QHS (bipolar disorder) Gabapentin 300 mg PO TID (anxiety) Hydrochlorthiazide 12. 5 mg PO QAM Lisinopril 20 mg PO QAM (hypertension) Latuda 120 mg PO QHS Metoprolol Tartrate 100 mg PO QAM Nicotine Inhaler 10 mg/inhalation. one inhalation Q2H prn craving B. DIET: Regular C. ACTIVITIES: TOLERATED NICOTINE REPLACEMENT THERAPY PRESCRIBED LISTED UNDER MEDICATIONS ABOVE. PATIENT WAS WAS GIVEN PHONE NUMBER FOR [facility] QUIT LINE WHICH IS THERE ARE NO LABORATORY OR DIAGNOSTIC STUDIES PENDING AT THE TIME OF DISCHARGE. D. FOLLOW UP CARE: PATIENT HAS FOLLOW UP APPOINTMENT AT [facility] WITH DR. DARNELL ( PSYCHIATRIST) ON 09/24/2017 AT 2:30 PM. HE WILL RECEIVE AN APPOINTMENT TO SEE HIS THERAPIST AT THIS APPOINTMENT E. SUBSTANCE ABUSE FOLLOWUP: NOT INDICATED ATTENDING PSYCHIATRIST HOSPITAL COURSE: PART A. JUSTIFICATION FOR ADMISSION: Patient has a history of bipolar disorder and has been experiencing depressive symptoms for past 3 weeks. He came to hospital due to suicidal ideation. He felt unsafe at home and was having strong urge to take an overdose of his cardiac medications. Patient is at high risk for self harm which meets criteria for inpatient psychiatric level of care. CHIEF COMPLAINT: 'I have suffered alot of losses which has made me depressed and feeling suicidal" HISTORY OF THE PRESENT ILLNESS: 31 yo male with history of ELENITA,Bipolar type I who brought himself to hospital for admission due to 3 week history of depression and recent onset of suicidal ideation with plan to overdose on his cardiac medications. 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 stressors which are determinants of his currrent depression include job loss, of several family members/friends in past 6 months, insufficient funds to pay his bills. symptoms include amotivation, anergia, anhedonia, suicidal ideation with thoughts of overdosing with his cardiac medications, difficulty falling asleep. patient was admitted as voluntary patient to treat his depression and provide for safety PAST PSYCHIATRIC HISTORY: treated by Dr. Darnell at [facility] for past 8 years. diagnosed with ADHD, bipolar I and ELENITA. patient reports he has had recurrent depressions and does experience 1 to 3 day periods of hypomania with racing thoughts, irritability, increased goal direction. reports he had one of these episodes the day prior to admission. patient has been maintaine on Latuda for many years with good success. Latuda was increased from 80 to 120 mg about [address] Darnell. Patient had been maintained on Depakote ER 500 mg since last discharged from psychiatric hospital 4 years ago. patient reports 3 past suicide attempts. Early 20's took an overdose, cut his wrists superficially in 2012 and 2013. Last two suicide attempts he was [place] [facility] Past medication trials: Paxil "helped very little", Lamictal but doesnt remember if it helped. no other medications that he can remember. SUBSTANCE ABUSE HISTORY: denies. drinks 6 beers per month. smoked cannabis in teens but stopped using at age 21. Tobacco use: 1 PPD PAST MEDICAL HISTORY: reports history of "tachycardia" and hypertensin. both treated by his PCP reports he had a cardiac workup including holter monitoring which was negative for arrythmia. CURRENT MEDICATIONS: Lisinopril 20 mg daily Metoprolol 50 mg BID Hydrochlorthiazide 12.5 mg QD clonidine 0.4 mg QHS (for insomnia and anxiety) Adderall XR 5 mg QAM ALLERGIES: Erythromycin FAMILY PSYCHIATRIC HISTORY: Father alcohol dependence; maternal uncle completed suicide; maternal grandfather- history of psychiatric hospitalizations. FAMILY/PSYCHOSOCIAL HISTORY: Born in [place] and raised in [place], [place]. primarily raised by his mother. has no siblings. Got his license to be an EMT and volunteers 40 hours per week. worked at [employer] since March 2013. living in [place] currently. has terminal press operator girlfriend who has schizoaffective disorder and has been dating her since 2012. worked at [employer] in past but was emotionally overwhelmed so he quit. reports ptsd symptoms from his exposure to trauma/crisis while being EMT. HOSPITAL COURSE : PART B PSYCHIATRIC TREATMENT RENDERED: Patient was admitted to [facility] on q 15 minute checks on a voluntary status. He was integrated into the milieu and afforded individual and group therapy offered by our interdisciplinary staff. Patient attended groups and did cooperate in his own treatment and recovery. Patient was evaluated by licensed clinical social worker and saw psychiatrist daily for mental status reevaluation and medication management to treat target symptoms of affective instabilify including irritability, dyshoria and hypomania (mixed symptoms). Interviews with patient revealed that he has significant difficulties being alone, has severe impulse control problems, very limited self soothing, becomes angry and agitated with minimal provocation, is highly dependent, and has limited ability to tolerate stress. patient has severe ADHD which is inadequately treated. However patient unable to tolerate stimulants at higher doses than 5 mg of adderall daily. Ritalin was poorly tolerated in past. Patient also observed to have very significant anxiety often ruminating and worrying about future events that he has no control over. Patient initially verbalized passive SI in the context of his overwhelming anxiety, mood, and ADHD symtoms. Pharmacological changes were introduced to address these symptoms. Depakote was started to target mood instability and titrated up to 1250 mg daily with enhanced mood stability and decreased irritability. Klonopin was started to target anxiety and titrated to 0.5 mg TID with good response. Also to target Anxiety patient was started on Gabapentin 300 mg TID. Patient reported remission of racing thoughts, perseverative worry, and decreased agitation. Finally patient was started on Strattera which was titrated to 40 mg daily for treatment of ADHD. Patient was made aware that onset of action of Strattera is often 2 to 3 weeks after starting the medication. By the end of the hospital stay patient verbalized that he was feeling less anxious, less irritable, and that his mood had improved considerably. His Suicidal ideation had completely remitted and he was enthusiastic about discharge and verbalized his intention to follow up with his outpatient providers. patient did not experience any side effects from medications that he was treated with during the hospital stay. Patient had normal physical examination on admission. Routine laboratory tests including CBC, Comprehensive Metabolic Panel, urinalysis were all within normal limits. Admission Urine toxicology screen was negative for all drugs of abuse. MIGUEL CHANG DO
== END 2017-09-28 11:15 | disposition home or self-care (01) | DRG 753 ==
LOC: ED 13:33 → BSU 21:22
PROVIDERS: ADMIT Psychiatry & Neurology Psychiatry; ATTEND Psychiatry & Neurology Psychiatry
PROC: GZHZZZZ Group Psychotherapy (ICD-10-PCS; principal; 2017-09-22)
DX: F31.9 Bipolar disorder, unspecified (principal); R45.851 Suicidal ideations; I10 Essential (primary) hypertension; F17.210 Nicotine dependence, cigarettes, uncomplicated; R40.2412 Glasgow coma scale score 13-15, at arrival to emergency department; F41.1 Generalized anxiety disorder; R45.84 Anhedonia; F60.3 Borderline personality disorder; F90.2 Attention-deficit hyperactivity disorder, combined type; Z81.1 Family history of alcohol abuse and dependence; Z81.8 Family history of other mental and behavioral disorders; Z88.1 Allergy status to other antibiotic agents; Z91.5 Personal history of self-harm; Z72.89 Other problems related to lifestyle
CPT/HCPCS: 36415; 80053; 80164; 80307; 80320; 80329; 81003; 81015; 84443; 85025; 90853; 99222; 99231; 99232; 99238; 99284; 99406; A9270-GY; G0480

== ENCOUNTER 2017-11-19 15:45 | Emergency (ER) | payer OTHER ==
[2017-11-19] MEDS ORDERED: Ibuprofen TAB* 600 MG PO ONE (16:14)
--- NOTE | 2017-11-19 17:04 | RAD ---
HISTORY: Fall, elbow pain COMPARISONS: None VIEWS: 4, Frontal, lateral, and oblique views of the right elbow FINDINGS: BONE DENSITY: Normal. BONES: There is impacted fracture of the radial head with intra-articular extension. JOINTS: There is no arthropathy. There is joint effusion. ALIGNMENT: There is no dislocation. SOFT TISSUES: Unremarkable. OTHER FINDINGS: None. IMPRESSION: IMPACTED RADIAL HEAD FRACTURE WITH JOINT EFFUSION.
--- NOTE | 2017-11-19 17:05 | RAD ---
HISTORY: Fall, pain, back pain COMPARISONS: None VIEWS: 5, Frontal and lateral views of the thoracic spine. FINDINGS: ALIGNMENT: The alignment is normal. VERTEBRAL BODIES: The vertebral body heights are normal. The interpedicular distances are normal. JOINTS: Unremarkable. INTERVERTEBRAL DISCS: The intervertebral disc heights are normal. SOFT TISSUE: Unremarkable OTHER: The visualized lungs are clear. IMPRESSION: UNREMARKABLE RADIOGRAPHS OF THE THORACIC SPINE
[2017-11-19] MEDS ORDERED: oxyCODONE/Acetamin 5/325 MG* TAB PO ONE (19:18)
[2017-11-19 20:00] VITALS: BP 130/79
--- NOTE | 2017-11-21 22:38 | ED ---
Chris Ramirez Abhishek, scribed for Ramo Pate MD on 11/19/17 at 1703 . Back Pain - HPI Summary HPI Summary: This patient is a 31 year old M presenting to [facility] with a chief complaint of lower back pain since a few hours ago (11/19/17). The pt states he fell down backwards side and hit his right elbow and lower back. Pt states the pain is also located at the elbow. 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 The patient rates the pain 6/10 in severity. Symptoms aggravated by movement. Symptoms alleviated by nothing. Patient reports diminished range of motion of the elbow, No LOC, No loss of memory, and wrist pain. Patient denies neck pain. Allergies noted and reviewed ( erythromycin). - History of Current Complaint Chief Complaint: EDExtremityUpper Stated Complaint: FALL/RT ARM & BACK BACK Hx Obtained From: Patient Onset/Duration: Lasting Hours - few hours ago 11/19/17 Timing: Constant Severity Initially: Moderate Severity Currently: Moderate Pain Intensity: 6 Pain Scale Used: 0-10 Numeric Aggravating Symptom(s): Movement Alleviating Symptom(s): Nothing Associated Signs And Symptoms: Positive: Other - elbow pain (right), and diminished range of motion at the elbow. - Allergies/Home Medications Allergies/Adverse Reactions: Allergies Allergy/AdvReac Type Severity Reaction Status Date / Time erythromycin base Allergy Hives Verified 11/19/17 16:07 PMH/Surg Hx/FS Hx/Imm Hx Endocrine/Hematology History: Denies: Hx Anticoagulant Therapy, Hx Diabetes, Hx Thyroid Disease Cardiovascular History: Reports: Hx Hypertension - tx'd w/ lisinopril, Other Cardiovascular Problems/Disorders - tachycardia - tx'd w/ metoprolol Denies: Hx Pacemaker/ICD Respiratory History: Denies: Hx Asthma, Hx Chronic Obstructive Pulmonary Disease (COPD) GI History: Denies: Hx Ulcer History: Denies: Hx Renal Disease Musculoskeletal History: Denies: Hx Arthritis, Hx Back Problems, Hx Bursitis, Hx Congenital Bone Abnormalities, Hx Fibromyalgia, Hx Gout, Hx Orthopedic Injury, Hx Osteoporosis, Hx Scoliosis, Hx Tendonitis, Other Musculoskeletal History Sensory History: Denies: Hx Contacts or Glasses, Hx Hearing Aid Opthamlomology History: Denies: Hx Contacts or Glasses Neurological History: Denies: Hx Dementia, Hx Seizures Psychiatric History: Reports: Hx Anxiety, Hx Attention Deficit Hyperactivity Disorder, Hx Depression, Hx Post Traumatic Stress Disorder, Hx Inpatient Treatment, Hx Community Mental Health Tx, Hx Bipolar Disorder, Hx Suicide Attempt - 3 in the past via pills per pt, Hx Substance Abuse Denies: Hx Eating Disorder, Hx Panic Disorder, Hx Schizophrenia, Hx of Violent Episodes Against Others - Surgical History Surgery Procedure, Year, and Place: Myringotomy Infectious Disease History: No Infectious Disease History: Denies: Hx Clostridium Difficile, Hx Hepatitis, Hx Human Immunodeficiency Virus (HIV), Hx of Known/Suspected MRSA, Hx Shingles, Hx Tuberculosis, Traveled Outside the [place] in Last 30 Days - Family History Known Family History: Positive: Hypertension, Other - mental health d/o's - Social History Alcohol Use: Rare Hx Substance Use: No Substance Use Type: Reports: Excessive Caffeine Hx Tobacco Use: Yes Smoking Status (MU): Heavy Every Day Tobacco Smoker Type: Cigarettes Amount Used/How Often: 1/2 ppd Review of Systems Constitutional: Negative Eyes: Negative ENT: Negative Cardiovascular: Negative Respiratory: Negative Gastrointestinal: Negative Genitourinary: Negative Musculoskeletal: Other - Elbow pain, and lower back pain Positive: Other - Negative wrist pain Neurological: Other - Negative LOC, and memory loss Psychological: Normal All Other Systems Reviewed And Are Negative: Yes Physical Exam - Summary Physical Exam Summary: Appearance: Well-appearing, Well-nourished Skin: Warm, Dry, No rash Eyes: Normal, PERRL, EOMI, sclera anicteric ENT: Normal Neck: Supple, nontender Respiratory: Clear to auscultation Cardiovascular: S1, S2, no murmur, no rub, no gallop, Normal pulses in the radial and ulnar position Abdomen: Soft, nontender, no organomegaly Bowel sounds: Present Musculoskeletal: Normal, Strength/ROM Intact, no edema, pulses symmetrical, Normal interosseous muscle strain right side, Tenderness of the distal humorous , No swelling, Full range of motion at the wrist or the hand Neurological: Normal, A&Ox3, cranial nerves II-XII WNL, follows commands, gait not tested, sensation intact to pin and light touch. Normal sensation of the median and radial and ulnar range, Psychiatric: affect normal, behavior appropriate, dressed appropriately, judgment intact Triage Information Reviewed: Yes Vital Signs On Initial Exam: Initial Vitals Temp Pulse Resp BP Pulse Ox 98.4 F 79 15 133/82 98 11/19/17 15:58 11/19/17 15:58 11/19/17 15:58 11/19/17 15:58 11/19/17 15:58 Vital Signs Reviewed: Yes Procedures - Procedure Summary Procedure Summary: Posterior right elbow splint placed: elbow placed in flexion posterior splint delayed fixed in physiological position. Pt tolerated to procedure well. Impacted radial heard fracture intraarticular Diagnostics - Vital Signs Vital Signs Temp Pulse Resp BP Pulse Ox 11/19/17 15:58 98.4 F 79 15 133/82 98 - Laboratory Lab Statement: Any lab studies that have been ordered have been reviewed, and results considered in the medical decision making process. - Radiology Thoracic Spine X-ray Radiology Interpretation Completed By: Radiologist Elbow X-ray Radiology Interpretation Completed By: Radiologist - Elbow X-ray reveals IMPACTED RADIAL HEAD FRACTURE WITH JOINT EFFUSION. ED physician has reviewed this radiology report and agrees. Back Pain Course/Dx - Course Course Of Treatment: The pt is a 31 y/o male with a chief complaint of lower back pain. The mechanism of injury is described as a fall from 4 feet during a training protocol. 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 Pt states he fell backwards and landed on back and right elbow. Patient reports diminished range of motion of the elbow, No LOC, No loss of memory, and wrist pain. Patient denies neck pain. X-rays to the patients right elbow and thoracic spine were done. The pt received a posterior stent to the right arm. The pt was placed in traction for 1 hour. He will be discharged home with a dx of fracture of the radial head, with compression and minimal displacement - Diagnoses Provider Diagnoses: Fracture of radial head, closed Discharge - Discharge Plan Condition: Good Disposition: HOME Patient Education Materials: Elbow Fracture (ED) Forms: *Work Release Referrals: Mahendra Hernandez MD [Medical Doctor] - Rod Pollock MD [Primary Care Provider] - The documentation as recorded by the Chris arcos Abhishek accurately reflects the service I personally performed and the decisions made by , Ramo Pate MD.
== END 2017-11-19 20:03 | disposition home or self-care (01) ==
LOC: ED 15:45
DX: S52.121A Displaced fracture of head of right radius, initial encounter for closed fracture (principal); M54.5 Low back pain; Z79.01 Long term (current) use of anticoagulants; F17.210 Nicotine dependence, cigarettes, uncomplicated; W19.XXXA Unspecified fall, initial encounter; Y92.9 Unspecified place or not applicable
CPT/HCPCS: 72070; 99282; A9270-GY

== ENCOUNTER 2018-01-10 22:32 | Emergency (ER) | payer OTHER ==
[2018-01-10 23:23] LABS: ABS Basophils 0.1 10^3/ul (0-0.2); ABS Eosinophils 0.4 10^3/ul (0-0.6); ABS Lymphocytes 1.7 10^3/ul (1.0-4.8); ABS Monocytes 0.8 10^3/ul (0-0.8); ABS Neutrophils 4.9 10^3/ul (1.5-7.7); ABS Nucleated RBC 0 10^3/ul; Eosinophil % 5.3 % (0-6); Hematocrit 38 % (42-52); Hemoglobin 13.3 g/dl (14.0-18.0); Lymphocyte % 22.2 % (25-47); Mean Corpuscular HGB Conc 35 g/dl (31-36); Mean Corpuscular Hemoglobin 31 pg (27-31); Mean Corpuscular Volume 89 fL (80-94); Mean Platelet Volume 7.9 um3 (7.4-10.4); Nucleated Red Blood Cells % 0; Platelet Count 270 10^3/ul (150-450); Red Blood Count 4.28 10^6/ul (4.0-5.4); Red Cell Distribution Width 13 % (10.5-15); White Blood Count 7.9 10^3/ul (3.5-10.8)
[2018-01-10 23:39] LABS: EGFR Non-African American 116.9 (>60)
[2018-01-11 05:21] LABS: Urine Appearance Clear; Urine Blood 1+ (Negative); Urine Color Yellow; Urine Ketones Trace (Negative); Urine Protein Negative (Negative); Urine Specific Gravity 1.013 (1.010-1.030); Urine Urobilinogen Negative (Negative)
--- NOTE | 2018-01-11 06:48 | ED ---
Gamal Ramirez Thomas, scribed for Alvaro Wolf MD on 01/10/18 at 2317 . Substance Abuse/Use - HPI Summary HPI Summary: The patient is a 32 year old male brought in by ambulance after ingesting 15 mg of Klonopin today at about 21:30. The patient took the pills and then walked to a firehouse explaining that he was attempting to commit suicide. He is sleepy and easily arousable. He is cooperative with questions. - History Of Current Complaint Chief Complaint: EDOverdose Stated Complaint: OVERDOSE Time Seen by Provider: 01/10/18 22:54 Hx Obtained From: Patient Ingestion History: Type/Name Of Drug - Klonipin Overdose Characteristics: Oral Severity Currently: Moderate Character: Other - Sleepy Aggravating Factor(s): Nothing Alleviating Factor(s): Nothing Associated Signs And Symptoms: Intentional Ingestion, Other: - Suicide attempt - Allergies/Home Medications Allergies/Adverse Reactions: Allergies Allergy/AdvReac Type Severity Reaction Status Date / Time erythromycin base Allergy Hives Verified 01/10/18 23:05 PMH/Surg Hx/FS Hx/Imm Hx Endocrine/Hematology History: Denies: Hx Anticoagulant Therapy, Hx Diabetes, Hx Thyroid Disease Cardiovascular History: Reports: Hx Hypertension - tx'd w/ lisinopril, Other Cardiovascular Problems/Disorders - tachycardia - tx'd w/ metoprolol Denies: Hx Pacemaker/ICD Respiratory History: Denies: Hx Asthma, Hx Chronic Obstructive Pulmonary Disease (COPD) GI History: Denies: Hx Ulcer History: Denies: Hx Renal Disease Musculoskeletal History: Denies: Hx Arthritis, Hx Back Problems, Hx Bursitis, Hx Congenital Bone Abnormalities, Hx Fibromyalgia, Hx Gout, Hx Orthopedic Injury, Hx Osteoporosis, Hx Scoliosis, Hx Tendonitis, Other Musculoskeletal History Sensory History: Denies: Hx Contacts or Glasses, Hx Hearing Aid Opthamlomology History: Denies: Hx Contacts or Glasses Neurological History: Denies: Hx Dementia, Hx Seizures Psychiatric History: Reports: Hx Anxiety, Hx Attention Deficit Hyperactivity Disorder, Hx Depression, Hx Post Traumatic Stress Disorder, Hx Inpatient Treatment, Hx Community Mental Health Tx, Hx Bipolar Disorder, Hx Suicide Attempt - 3 in the past via pills per pt, Hx Substance Abuse Denies: Hx Eating Disorder, Hx Panic Disorder, Hx Schizophrenia, Hx of Violent Episodes Against Others - Surgical History Surgery Procedure, Year, and Place: Myringotomy Infectious Disease History: No Infectious Disease History: Denies: Hx Clostridium Difficile, Hx Hepatitis, Hx Human Immunodeficiency Virus (HIV), Hx of Known/Suspected MRSA, Hx Shingles, Hx Tuberculosis, Traveled Outside the [place] in Last 30 Days - Family History Known Family History: Positive: Hypertension, Other - mental health d/o's - Social History Alcohol Use: Rare Hx Substance Use: No Substance Use Type: Reports: Excessive Caffeine Hx Tobacco Use: Yes Smoking Status (MU): Heavy Every Day Tobacco Smoker Type: Cigarettes Amount Used/How Often: 1/2 ppd Review of Systems Negative: Fever Positive: Other - Suicide attempt All Other Systems Reviewed And Are Negative: Yes Physical Exam - Summary Physical Exam Summary: VITAL SIGNS: Reviewed. GENERAL: Patient is a well-developed and nourished male who is lying comfortable in the stretcher. Patient is not in any acute respiratory distress. He is sleepy and easily arousable. HEAD AND FACE: No signs of trauma. No ecchymosis, hematomas or skull depressions. No sinus tenderness. EYES: PERRLA, EOMI x 2, No injected conjunctiva, no nystagmus. EARS: Hearing grossly intact. Ear canals and tympanic membranes are within normal limits. MOUTH: Oropharynx within normal limits. NECK: Supple, trachea is midline, no adenopathy, no JVD, no carotid bruit, no c- spine tenderness, neck with full ROM. CHEST: Symmetric, no tenderness at palpation LUNGS: Clear to auscultation bilaterally. No wheezing or crackles. CVS: Regular rate and rhythm, S1 and S2 present, no murmurs or gallops appreciated. ABDOMEN: Soft, non-tender. No signs of distention. No rebound no guarding, and no masses palpated. Bowel sounds are normal. EXTREMITIES: FROM in all major joints, no edema, no cyanosis or clubbing. NEURO: Alert and oriented x 3. No acute neurological deficits. He is sleepy and easily arousable. SKIN: Dry and warm Triage Information Reviewed: Yes Vital Signs On Initial Exam: Initial Vitals Temp Pulse Resp BP Pulse Ox 99.6 F 106 18 145/80 98 01/10/18 22:51 01/10/18 22:51 01/10/18 22:51 01/10/18 22:51 01/10/18 22:51 Vital Signs Reviewed: Yes Diagnostics - Vital Signs Vital Signs Temp Pulse Resp BP Pulse Ox 01/10/18 22:51 99.6 F 106 18 145/80 98 - Laboratory Result Diagrams: 01/10/18 23:14 01/10/18 23:14 Lab Statement: Any lab studies that have been ordered have been reviewed, and results considered in the medical decision making process. - EKG 22:53 Cardiac Rate: NL EKG Rhythm: Sinus Rhythm - at 83 BPM EKG Interpretation: Nonspecific T-wave changes in inferior leads. Course/Dx - Course Assessment/Plan: The patient is a 32 year old male brought in by ambulance after ingesting 15 mg of Klonopin today at about 21:30. The patient took the pills and then walked to a firehouse explaining that he was attempting to commit suicide. He is sleepy and easily arousable. He is cooperative with questions. Bloodwork was obtained. EKG shows sinus rhythm with nonspecific T- wave changes in inferior leads. The patient was evaluated by the mental health evaluators. Dr. Chapman, psychiatry, recommends diagnosis of mood disorder NOS and admission. The patient is unable to be admitted to [facility] at this time, so the patient will be signed out to Dr. Silva at shift change pending transfer. - Diagnoses Provider Diagnoses: Mood disorder - Physician Notifications Discussed Care Of Patient With: Antoni Chapman Time Discussed With Above Provider: 06:26 Instructed by Provider To: Other - Dr. Chapman, psychiatry, recommends diagnosis of mood disorder and transfer of the patient. Discharge - Sign-Out/Discharge Documenting (check all that apply): Sign-Out Patient Signing out patient TO: Jean Carlos Silva - Discharge Plan Condition: Stable Disposition: PSYCHIATRIC FACILITY-OTHER Referrals: Rod Pollock MD [Primary Care Provider] - The documentation as recorded by the Gamal arcos Thomas accurately reflects the service I personally performed and the decisions made by me, Alvaro Wolf MD.
[2018-01-11] MEDS ORDERED: Mouth Piece, Nicotine* 1 EACH CARTRIDGE INH PRN ×2 (12:27)
[2018-01-11] MEDS ORDERED: Nicotine Inhaler* 10 MG AMP INH PRN (12:27)
[2018-01-11] MEDS ORDERED: Metoprolol Succinate XL TAB* 100 MG PO SCH (12:30)
[2018-01-11] MEDS ORDERED: Mouth Piece, Nicotine* 1 EACH CARTRIDGE ONE (12:38)
[2018-01-11] MEDS ORDERED: Nicotine Inhaler* 10 MG AMP ONE (12:38)
[2018-01-11] MEDS ORDERED: Lisinopril TAB* 10 MG PO SCH (13:00)
[2018-01-11] MEDS ORDERED: Hydrochlorothiazide TAB* 25 MG PO SCH (13:00)
--- NOTE | 2018-01-11 14:48 | ED ---
Jesus Manuel Ramirez Angela, scribed for Jean Carlos Silva MD on 01/11/18 at 0902 . Progress - Progress Note Progress Note: This pt was signed out by Dr. Wolf, pending transfer to another psychiatric facility. Pt will be transferred involuntarily to [facility] ([place], [place]) with a diagnosis of mood disorder and depression. He is to be admitted on an involuntary basis. Paperwork was signed. Course/Dx - Diagnoses Provider Diagnoses: Mood disorder, Depression Discharge - Sign-Out/Discharge Documenting (check all that apply): Discharge/Admit/Transfer - Transfer - Discharge Plan Condition: Stable Disposition: PSYCHIATRIC FACILITY-OTHER Discharge Disposition Comment: [facility] Referrals: Rod Pollock MD [Primary Care Provider] - - Billing Disposition and Condition Condition: STABLE Disposition: PSY-OTH The documentation as recorded by the Jesus Manuel arcos Angela accurately reflects the service I personally performed and the decisions made by Shira worthington Kirk, MD.
[2018-01-11 17:54] VITALS: BP 114/61
== END 2018-01-11 20:20 ==
LOC: ED 22:32
DX: F31.9 Bipolar disorder, unspecified (principal); T42.4X2A Poisoning by benzodiazepines, intentional self-harm, initial encounter; Y92.009 Unspecified place in unspecified non-institutional (private) residence as the place of occurrence of the external cause; I10 Essential (primary) hypertension; R00.0 Tachycardia, unspecified; F90.9 Attention-deficit hyperactivity disorder, unspecified type; F41.9 Anxiety disorder, unspecified; Z91.5 Personal history of self-harm; Z88.1 Allergy status to other antibiotic agents; F17.210 Nicotine dependence, cigarettes, uncomplicated
CPT/HCPCS: 36415; 80053; 80164; 80178; 80307; 80320; 80329; 81003; 81015; 84443; 85025; 87086; 93005; 99284; A9270-GY; G0480

== ENCOUNTER 2018-05-11 11:20 | Emergency (ER) | payer OTHER ==
[2018-05-11 11:25] VITALS: BP 119/78
[2018-05-11] MEDS ORDERED: Ketorolac INJ* 60 MG/2 ML VIAL IM ONE (11:54)
--- NOTE | 2018-05-11 12:55 | RAD ---
Indication: LEFT shoulder pain following injury 5 days ago. Comparison: No relevant prior exams available on the [facility] for comparison. Technique: Internal rotation AP, external rotation Grashey, scapular Y, axillary views LEFT shoulder Report: Negative for fracture. Normal acromioclavicular and glenohumeral joint alignment. No arthropathic change evident. Unremarkable soft tissue contours. IMPRESSION: #. Negative radiographic exam of the LEFT shoulder.
--- NOTE | 2018-05-11 12:57 | RAD ---
INDICATION: Back pain COMPARISON: November 19, 2017 TECHNIQUE: Routine 2 view imaging was performed FINDINGS: Bones: There are no acute bony findings. There are no significant osteoarthritic findings. Alignment: Normal Disc spaces: The disc spaces are well-maintained Soft tissues: There are no soft tissue abnormalities. IMPRESSION: NEGATIVE EXAMINATION.
--- NOTE | 2018-05-11 12:59 | RAD ---
Indication: LEFT mid axillary pain post injury 5 days ago. Comparison: Thoracic spine exam of the same date. Technique: 4 view LEFT unilateral rib series. Report: No LEFT rib fracture, pulmonary contusion, pleural effusion, or pneumothorax evident. IMPRESSION: #. Negative LEFT unilateral rib series.
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
== END 2018-05-11 14:11 | disposition home or self-care (01) ==
LOC: ED 11:20
DX: S46.912A Strain of unspecified muscle, fascia and tendon at shoulder and upper arm level, left arm, initial encounter (principal); T14.8XXA Other injury of unspecified body region, initial encounter; F17.210 Nicotine dependence, cigarettes, uncomplicated; Y04.8XXA Assault by other bodily force, initial encounter; Y92.9 Unspecified place or not applicable
CPT/HCPCS: 72070; J1885

== ENCOUNTER 2018-06-15 18:25 | Inpatient (IN) | payer OTHER ==
--- NOTE | 2018-06-15 19:17 | ED ---
Psychiatric Complaint - HPI Summary HPI Summary: This patient is a 32 year old M presenting to [facility] accompanied by his with a chief complaint of SI since may 04. Pt states he has been going through a lot and has not had the chance to deal with the loss of his mother. He states he has been taking his medications but has not been sleeping well at night. He denies plan or actions. He has been admitted to a mental health unit in the past. He is feeling anxious now and takes clonopin PRN. Hx bipolar disorder, SI, and self harm. - History Of Current Complaint Chief Complaint: EDMentalHealth Time Seen by Provider: 06/15/18 18:58 Hx Obtained From: Patient Onset/Duration: Still Present Timing: Constant Severity Initially: Moderate Severity Currently: Moderate Character: Depressed, Anxious Aggravating Factor(s): Recent Stress Related History: Positive For: Prior Psychiatric Issues Has Suicidal: Reports: Thoughts. Denies: With A Plan - Allergies/Home Medications Allergies/Adverse Reactions: Allergies Allergy/AdvReac Type Severity Reaction Status Date / Time erythromycin base Allergy Hives Verified 06/15/18 18:34 PMH/Surg Hx/FS Hx/Imm Hx Endocrine/Hematology History: Denies: Hx Anticoagulant Therapy, Hx Diabetes, Hx Thyroid Disease Cardiovascular History: Reports: Hx Hypertension - tx'd w/ lisinopril, Other Cardiovascular Problems/Disorders - tachycardia - tx'd w/ metoprolol Denies: Hx Pacemaker/ICD Respiratory History: Denies: Hx Asthma, Hx Chronic Obstructive Pulmonary Disease (COPD) GI History: Denies: Hx Ulcer History: Denies: Hx Renal Disease Musculoskeletal History: Denies: Hx Arthritis, Hx Back Problems, Hx Bursitis, Hx Congenital Bone Abnormalities, Hx Fibromyalgia, Hx Gout, Hx Orthopedic Injury, Hx Osteoporosis, Hx Scoliosis, Hx Tendonitis, Other Musculoskeletal History Sensory History: Denies: Hx Contacts or Glasses, Hx Hearing Aid Opthamlomology History: Denies: Hx Contacts or Glasses Neurological History: Denies: Hx Dementia, Hx Seizures Psychiatric History: Reports: Hx Anxiety, Hx Attention Deficit Hyperactivity Disorder, Hx Depression, Hx Post Traumatic Stress Disorder, Hx Inpatient Treatment, Hx Community Mental Health Tx, Hx Bipolar Disorder, Hx Suicide Attempt - 3 in the past via pills per pt, Hx Substance Abuse Denies: Hx Eating Disorder, Hx Panic Disorder, Hx Schizophrenia, Hx of Violent Episodes Against Others - Surgical History Surgery Procedure, Year, and Place: Myringotomy Infectious Disease History: No Infectious Disease History: Denies: Hx Clostridium Difficile, Hx Hepatitis, Hx Human Immunodeficiency Virus (HIV), Hx of Known/Suspected MRSA, Hx Shingles, Hx Tuberculosis, Traveled Outside the [place] in Last 30 Days - Family History Known Family History: Positive: Hypertension, Other - mental health d/o's - Social History Alcohol Use: Rare Hx Substance Use: No Substance Use Type: Reports: Excessive Caffeine Hx Tobacco Use: Yes Smoking Status (MU): Heavy Every Day Tobacco Smoker Type: Cigarettes Amount Used/How Often: 1/2 ppd Review of Systems Negative: Fever, Chills Negative: Erythema Negative: Sore Throat Negative: Chest Pain Negative: Shortness Of Breath, Cough Negative: Abdominal Pain, Vomiting, Nausea Negative: dysuria, hematuria Negative: Myalgia, Edema Negative: Rash Neurological: Negative - dizziness Positive: Anxious, Depressed, Other - SI All Other Systems Reviewed And Are Negative: Yes Physical Exam - Summary Physical Exam Summary: Constitutional: Well-developed, Well-nourished, Alert. (-) Distressed Skin: Warm, Dry HENT: Normocephalic; Atraumatic Eyes: Conjunctiva normal Neck: Musculoskeletal ROM normal neck. (-) JVD, (-) Stridor, (-) Tracheal deviation Cardio: Rhythm regular, rate normal, Heart sounds normal; Intact distal pulses; The pedal pulses are 2+ and symmetric. Radial pulses are 2+ and symmetric. (-) Murmur Pulmonary/Chest wall: Effort normal. (-) Respiratory distress, (-) Wheezes, (-) Rales Abd: Soft, (-) epigastric tenderness, (-) Distension, (-) Guarding, (-) Rebound Musculoskeletal: (-) Edema Lymph: (-) Cervical adenopathy Neuro: Alert, Oriented x3 Psych: flat affect Triage Information Reviewed: Yes Vital Signs On Initial Exam: Initial Vitals Temp Pulse Resp BP Pulse Ox 97.9 F 78 16 167/85 99 06/15/18 18:27 06/15/18 18:27 06/15/18 18:27 06/15/18 18:27 06/15/18 18:27 Vital Signs Reviewed: Yes Diagnostics - Vital Signs Vital Signs Temp Pulse Resp BP Pulse Ox 06/15/18 18:27 97.9 F 78 16 167/85 99 - Laboratory Result Diagrams: 06/15/18 19:22 06/15/18 19:22 Lab Statement: Any lab studies that have been ordered have been reviewed, and results considered in the medical decision making process. Course/Dx - Course Assessment/Plan: This patient will be signed out to Dr. Wolf awaiting MHE on shift change. Discharge - Sign-Out/Discharge Documenting (check all that apply): Sign-Out Patient Signing out patient TO: Alvaro Wolf - Discharge Plan Referrals: Rod Pollock MD [Primary Care Provider] - - Attestation Statements Document Initiated by Scribe: Yes Documenting Scribe: Kwame Wang Provider For Whom Scribe is Documenting (Include Credential): Darrell Beebe MD Scribe Attestation: Kwame Ramirez, scribed for Darrell Beebe MD on 06/15/18 at 2154.
[2018-06-15] MEDS ORDERED: clonazePAM TAB(*) 0.5 MG PO ONE (19:21)
[2018-06-15 19:38] LABS: ABS Basophils 0.1 10^3/ul (0-0.2); ABS Eosinophils 0.1 10^3/ul (0-0.6); ABS Lymphocytes 2.1 10^3/ul (1.0-4.8); ABS Monocytes 0.7 10^3/ul (0-0.8); ABS Neutrophils 5.1 10^3/ul (1.5-7.7); ABS Nucleated RBC 0 10^3/ul; Eosinophil % 1.7 % (0-6); Hematocrit 44 % (42-52); Hemoglobin 15.5 g/dl (14.0-18.0); Lymphocyte % 25.8 % (25-47); Mean Corpuscular HGB Conc 35 g/dl (31-36); Mean Corpuscular Hemoglobin 31 pg (27-31); Mean Corpuscular Volume 88 fL (80-94); Mean Platelet Volume 8.1 um3 (7.4-10.4); Nucleated Red Blood Cells % 0.3; Platelet Count 288 10^3/ul (150-450); Red Blood Count 5.01 10^6/ul (4.00-5.40); Red Cell Distribution Width 13 % (10.5-15)
[2018-06-15 19:49] LABS: Urine Appearance Clear; Urine Blood 2+ (Negative); Urine Color Yellow; Urine Ketones 1+ (Negative); Urine Protein Negative (Negative); Urine Red Blood Cell 3+(>10/hpf) (Absent); Urine Specific Gravity 1.013 (1.010-1.030); Urine Urobilinogen Negative (Negative); Urine White Blood Cell Trace(0-5/hpf) (Absent)
[2018-06-15 19:59] LABS: EGFR Non-African American 94.2 (>60)
[2018-06-15 20:28] LABS: Lithium < 0.10 mmol/L (0.6-1.2)
--- NOTE | 2018-06-15 22:34 | ED ---
Progress - Progress Note Progress Note: 22:00- Received pt sign out from Dr Abiel Ramírez MD due to a pending MHE The pt will be admitted voluntarily to Dr. Dhillon with a final Dx of depression Course/Dx - Diagnoses Provider Diagnoses: Depression Discharge - Sign-Out/Discharge Documenting (check all that apply): Patient Departure - Admit Receiving patient FROM: Darrell Beebe - 22:00 - Discharge Plan Condition: Stable Disposition: ADMITTED TO [facility] Referrals: Rod Pollock MD [Primary Care Provider] - 2 Days - Attestation Statements Document Initiated by Scribe: Yes Documenting Scribe: Olry Emanuel Provider For Whom Scribe is Documenting (Include Credential): Dr. Luciano John MD Scribe Attestation: Orly Ramirez , scribed for Dr. Luciano John MD on 06/16/18 at 0609.
[2018-06-15] MEDS ORDERED: Nicotine Inhaler* 10 MG AMP ONE (22:55)
[2018-06-15] MEDS ORDERED: Mouth Piece, Nicotine* 1 EACH CARTRIDGE ONE (22:55)
[2018-06-15] MEDS: Nicotine Inhaler* 10 MG AMP INH PRN (22:56)
[2018-06-15] MEDS: Mouth Piece, Nicotine* 1 EACH CARTRIDGE INH PRN (22:57)
[2018-06-15] MEDS ORDERED: Mouth Piece, Nicotine* 1 EACH CARTRIDGE INH ONE (23:45)
[2018-06-16] MEDS ORDERED: Al Hydrox/Mg Hydrox/Simet LIQ* 30 ML UDC PO PRN (06:26)
[2018-06-16] MEDS ORDERED: Nicotine GUM* 2 MG PO PRN (06:26)
[2018-06-16] MEDS ORDERED: Acetaminophen TAB* 325 MG PO PRN (06:26)
[2018-06-16] MEDS ORDERED: clonazePAM TAB(*) 0.5 MG PO PRN (06:31)
[2018-06-16] MEDS: Lurasidone(*) 120 MG TAB PO SCH ×2 (10:44→21:05)
[2018-06-16] MEDS: Divalproex ER TAB(*) 500 MG PO SCH ×2 (10:45→21:04)
[2018-06-16] MEDS: lamoTRIgine TAB(*) 25 MG PO SCH ×2 (10:45→21:05)
[2018-06-16] MEDS: Vitamin THERAPEUTIC TAB PO SCH (10:45)
[2018-06-16] MEDS: cloNIDine TAB* 0.1 MG PO SCH ×2 (10:45→21:04)
[2018-06-16] MEDS: Nicotine Inhaler* 10 MG AMP INH PRN (14:01)
[2018-06-17] MEDS: Vitamin THERAPEUTIC TAB PO SCH (08:05)
[2018-06-17] MEDS: Divalproex ER TAB(*) 500 MG PO SCH ×2 (08:05→21:22)
[2018-06-17] MEDS: Nicotine Inhaler* 10 MG AMP INH PRN (12:26)
[2018-06-17] MEDS ORDERED: Ibuprofen TAB* 600 MG PO PRN (17:15)
--- NOTE | 2018-06-17 19:32 | HP ---
HISTORY AND PHYSICAL: DATE OF ADMISSION: IDENTIFYING DATA: Osmar is a 32-year-old, single, employed, male with 1 prior psychiatric hospitalization within a year at [facility], came to the emergency room on his own referred by his therapist at [facility] because of verbalizing suicidal thoughts. CHIEF COMPLAINT: "I had a triggering event yesterday and my suicidal thoughts were getting intensified." HISTORY OF PRESENT ILLNESS: This is a 32-year-old male, who reports that he lost his mother on 05/04/18 from a cardiac event at [facility]. According to him, there was an error on part of the doctors who failed to put a stent in her heart, which collapsed and she ended up dying. Again, this is his claim. Since then, he has been dealing with the loss and going through the mourning. Day before yesterday, when he was with his therapist, he saw one of his ex-girlfriends and tried to have a friendly conversation with her. He was rejected. He then tried to connect with her on the phone again and was rejected once again, which triggered his emotions and was thinking about suicide once again. He reports that since then, he has been feeling hopeless and helpless as in his mind nothing good can happen in his life. Otherwise, he says he was more or less at his baseline taking his medications as prescribed and trying to deal with the loss of his mother. He denied experiencing any hallucinations, delusions, or not thinking about suicide anymore at this time. PAST PSYCHIATRIC HISTORY: One prior psychiatric hospitalization last year due to overdose on his medications in the context of severe depression. He was hospitalized at [facility] for 7 days. Prior to that, he says he attempted suicide one more time. He does not know when was it. At this time, he did not have any plan how to commit suicide. He sees Dr. Darnell at [facility] and he has a therapist who he sees on a regular basis. His therapist name is Mariama Baker. He is on multiple medications including Klonopin, Latuda 120mg daily, lamotrigine 25 mg daily, Depakote ER 500 mg b.i.d. His Klonopin dose is 0.5 mg p.r.n. daily. He also takes clonidine 0.2 mg at bedtime. PAST MEDICAL HISTORY: Remarkable for hypertension and migraine headache. MEDICATIONS: His medical medications include: 1. Metoprolol 25 mg twice daily. 2. Lisinopril 12.5 once daily. 3. Psychotropic meds as mentioned above. ALLERGIES: No known drug allergies. FAMILY HISTORY: He is the only child from his parents and denies any family history of mental illness. PERSONAL AND SOCIAL HISTORY: Osmar is single. 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 He is engaged but does not have any children. Denies any legal problems. PHYSICAL EXAMINATION GENERAL: Osmar appears to be in moderate physical distress due to headache. Otherwise, denies any other physical health distress at this time. He is moderately obese, but healthy appearing, appropriately dressed, fairly groomed with fair personal hygiene. HEENT: Head: Atraumatic, normocephalic. Full hair. Eyes: PERRLA, EOMI x2. Clear conjunctivae. NECK: Supple with midline trachea. No JVD. No lymphadenopathy or thyromegaly. CHEST: Clear with equal air entry bilaterally. No wheezing or crackles. CARDIOVASCULAR: S1 and S2 only. No murmurs or gallops. ABDOMEN: Little bit on obese side, but soft without any organomegaly or tenderness. Bowel sounds positive in all quadrants. MUSCULOSKELETAL: Within normal limits. Full range of movements. Pulse positive. NEUROLOGICAL: Cranial nerves II through XII grossly intact. No sensory deficits. MENTAL STATUS EXAMINATION: Healthy appearing, mildly obese, male, appropriately dressed, fairly groomed with fair personal hygiene. He is alert and oriented to time, place, and person. Describes his mood as depressed. Observed affect appears to be somewhat dysphoric. Speech is normal in all spheres. Intelligence appears to be average as evidenced by his vocabulary and fund of knowledge. Memory functions are intact in all spheres. There is no evidence of thought, perceptual or psychomotor disturbances. Denies current suicidal ideation or homicidal ideations. Insight and judgment appear to be fair to good. SUMMARY: This is a 32-year-old single male with history of mood dysregulation in the past, who was at baseline mental status even after of his mother this [employer] became distressed after he tried to reconnect with one of his exes. He felt depressed and his chronic suicidal thoughts got intensified resulting in him coming to the emergency room. He is currently denying any suicidal thoughts. DIAGNOSTIC IMPRESSION: MENTAL HEALTH DIAGNOSES: Adjustment disorder with depressed mood History of bipolar disorder. PHYSICAL HEALTH DIAGNOSIS: Hypertension. TREATMENT RECOMMENDATIONS: Osmar will benefit from brief hospitalization for his safety. I do not see any reason to make adjustment to any of his outpatient medications as his psychiatric condition will stabilize on its own in a safe and therapeutic envioronment. Supportive milieu, individual, and group therapy will be initiated. His code status will remain full. Plan is to continue all his outpatient medications and as soon as aftercare plan is completed, he can be discharged home. [id number]/CPS #: [id number]
[2018-06-17] MEDS: Metoprolol Tartrate TAB* 25 MG PO SCH (21:22)
[2018-06-17] MEDS: cloNIDine TAB* 0.1 MG PO SCH (21:22)
[2018-06-17] MEDS: lamoTRIgine TAB(*) 25 MG PO SCH (21:22)
[2018-06-17] MEDS: Lurasidone(*) 120 MG TAB PO SCH (21:22)
[2018-06-18] MEDS: Lisinopril TAB* 5 MG PO SCH (08:19)
[2018-06-18] MEDS: Vitamin THERAPEUTIC TAB PO SCH (08:21)
[2018-06-18] MEDS: Metoprolol Tartrate TAB* 25 MG PO SCH ×2 (08:21→22:46)
[2018-06-18] MEDS: Divalproex ER TAB(*) 500 MG PO SCH ×2 (08:22→22:46)
[2018-06-18] MEDS: Mouth Piece, Nicotine* 1 EACH CARTRIDGE INH PRN (08:40)
[2018-06-18] MEDS: Nicotine Inhaler* 10 MG AMP INH PRN ×3 (08:40→21:31)
[2018-06-18] MEDS ORDERED: Pneumococcal *Vac Polyvalent 0.5 ML VIAL IM ONE (09:00)
[2018-06-18] MEDS: cloNIDine TAB* 0.1 MG PO SCH (22:46)
[2018-06-18] MEDS: Lurasidone(*) 120 MG TAB PO SCH (22:46)
[2018-06-18] MEDS: lamoTRIgine TAB(*) 25 MG PO SCH (22:46)
[2018-06-19] MEDS: Metoprolol Tartrate TAB* 25 MG PO SCH ×2 (08:02→21:22)
[2018-06-19] MEDS: Nicotine Inhaler* 10 MG AMP INH PRN ×2 (08:02→16:04)
[2018-06-19] MEDS: Vitamin THERAPEUTIC TAB PO SCH (08:02)
[2018-06-19] MEDS: Divalproex ER TAB(*) 500 MG PO SCH ×2 (08:02→21:20)
[2018-06-19] MEDS: Lisinopril TAB* 5 MG PO SCH (08:02)
--- NOTE | 2018-06-19 15:37 | PN ---
Subjective - Subjective Date of Service: 06/19/18 Service Type: 31217 Hosp care 35 min high complexity Subjective: Yvonne seems happy and well. His affect is somewhat incongruent with his situation, however. He states he came here because Mariama Baker, his therapist , made him by threatening to 9.45 him. He's had some social stressors which made him feel more blue than usual. In fact, he's been feeling depressed for months and months, although he is more specific saying that he is incredibly apathetic rather than suicidal. When pressed about this, he indicates he never wanted to kill himself, not really, but he didn't want to get out of bed or go to work or take care of himself. He also says, "This isn't my first rodeo" referring to being hospitalized. It is unclear whether this means he knows what to say to get released or he's just accustomed to the routine. He's under significant stress. 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 He gets Tuesday and Tuesday nights off. His fiance is Елена. He says they get along very well and he spends time with her on his nights off. Yvonne would like to meet with Alfonso Lewis to discuss the grief he has that he doesn't know how to express about his mother. Objective - Appearance Appearance: Well Developed/Nourished Dysmorphic Features: No Hygiene: Normal Grooming: Fairly Well Kept - Behavior Psychomotor Activities: Normal Exhibits Abnormal Movement: No - Attitude and Relatedness Attitude and Relatedness: Well Related Eye Contact: Good - Speech Quality: Unpressured Latencies: Normal Quantity: Appropriate - Mood Patient's Decription of Mood: "Good" - Affect Observed Affect: Good Affect Consistent with: Euthymia - Thought Process Patient's Thought Process: Coherent, Goal Directed Thought Content: Yes Passive Wish, No Suicidal Planning, No Homicidal Ideation, No Paranoid Ideation - Sensorium Experiencing Hallucinations: No, Sensorium is Clear Type of Hallucinations: Visual: No, Auditory: No, Command: No - Level of Consciousness Level of Consciousness: Alert Orientation: Yes Intact, Yes Orientated to Time, Yes Orientated to Place, Yes Orientated to Person - Impulse Control Impulse Control: Tenuous - Insight and Judgement Insight and Judgement: Fair - Group Participation Particating in Group Activities: Yes - Medication Management Medication Management Adherence: Yes - Additional Observations Comments: Yvonne has an incongruent affect: he appears bright while describing the grief he has for his mother that he doesn't know how to manage. He also talks about his multiple stressors with an air of unconcern. This combination is concerning. Assessment - Assessment Merits Inpatient Hospitalization: For Immediate Safety Inpatient DSM-V Dx: F31.60 Clinical Impression: Yvonne is a 32-year-old man who is partnered to a woman named Елена. 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 His mother in April and he has not yet grieved for her. He is overwhelmed and in that context makes statements that indicate his is thinking of suicide passively. Plan - Plan Treatment Plan: Name: YVONNE NOVOA Birthdate: 1985 [id number] Continued Medication Management: Different Medication Medications: Current Medications Acetaminophen (Tylenol Tab*) 650 mg PO Q4H PRN PRN Reason: PAIN or TEMP > 101 F Al Hydrox/Mg Hydrox/Simethicone (Maalox Plus*) 30 ml PO Q4H PRN PRN Reason: INDIGESTION Clonazepam (Klonopin Tab(*)) 0.5 mg PO DAILY PRN PRN Reason: ANXIETY Clonidine HCl (Catapres Tab*) 0.2 mg PO BEDTIME [facility] Last Admin: 06/18/18 22:46 Dose: 0.2 mg Divalproex Sodium (Depakote Er Tab(*)) 500 mg PO BID [facility] Last Admin: 06/19/18 08:02 Dose: 500 mg Ibuprofen (Motrin Tab*) 400 mg PO Q6H PRN PRN Reason: PAIN Lamotrigine (Lamictal Tab(*)) 25 mg PO BEDTIME [facility] Last Admin: 06/18/18 22:46 Dose: 25 mg Lisinopril (Prinivil Tab*) 12.5 mg PO DAILY [facility] Last Admin: 06/19/18 08:02 Dose: 12.5 mg Lurasidone HCl (Latuda) 120 mg PO BEDTIME [facility] Last Admin: 06/18/18 22:46 Dose: 120 mg Metoprolol Tartrate (Lopressor Tab*) 25 mg PO BID [facility] Last Admin: 06/19/18 08:02 Dose: 25 mg Multivitamins (Theragran Tab*) 1 tab PO DAILY [facility] Last Admin: 06/19/18 08:02 Dose: 1 tab Nicotine (Nicotine Inhaler*) 10 mg INH Q2H PRN PRN Reason: CRAVING Last Admin: 06/19/18 08:02 Dose: 10 mg Nicotine Polacrilex (Nicotine Gum*) 2 mg PO Q2H PRN PRN Reason: CRAVING - Discharge Plan Discharge Plan: Outpatient Follow Up Outpatient Program: [facility] Additional Comments: Yvonne is currently comfortable with his medications and would like me to consult with Dr. Darnell before making changes. nevertheless, my plan is to increase Lamictal to 50 mg, as 25 mg is likely not helpful at that dose. We will keep Yvonne until Tuesday. He will benefit from the support and peace that he might find here at the hospital. He stated that he feels like he needs an eighth day of the week to get things done. he was encouraged to consider this time his eighth day and to take time to take care of himself.
[2018-06-19] MEDS: lamoTRIgine TAB(*) 25 MG PO SCH (21:21)
[2018-06-19] MEDS: cloNIDine TAB* 0.1 MG PO SCH (21:21)
[2018-06-19] MEDS: Lurasidone(*) 120 MG TAB PO SCH (21:23)
[2018-06-20] MEDS: Ibuprofen TAB* 400 MG PO PRN ×2 (04:09→11:50)
[2018-06-20] MEDS: Lisinopril TAB* 5 MG PO SCH (08:10)
[2018-06-20] MEDS: Metoprolol Tartrate TAB* 25 MG PO SCH (08:11)
[2018-06-20] MEDS: Divalproex ER TAB(*) 500 MG PO SCH (08:12)
[2018-06-20] MEDS: Vitamin THERAPEUTIC TAB PO SCH (08:12)
[2018-06-20 08:36] VITALS: BP 115/70
[2018-06-20] MEDS ORDERED: Pseudoephedrine TAB* 60 MG PO PRN (10:15)
[2018-06-20] MEDS: Nicotine Inhaler* 10 MG AMP INH PRN (12:39)
--- NOTE | 2018-06-22 04:15 | DS ---
CC: [facility]; Solitario Darnell MD; Mariama Baker MILITARY ANALYST-R * DISCHARGE SUMMARY: DATE OF ADMISSION: 06/16/18 DATE OF DISCHARGE: 06/20/18 PROVIDER: Faith Verduzco NP, in Psychiatry. SUPERVISING PHYSICIAN: Dr. Jorge Scott.* (DICTATED BY FAITH VERDUZCO NP ) DIAGNOSES: [place] I: Major depressive disorder, generalized anxiety disorder. [place] II: Borderline personality disorder. CONDITION AT THE TIME OF DISCHARGE: Osmar is improved. He is psychiatrically cleared. He is stable. Osmar participated in groups and was social with peers. His girlfriend is agreeable to discharge and in fact demanded it. He has done okay here psychiatrically. We made no med changes. He did attend groups. He will attend [facility]. MENTAL STATUS EXAMINATION: At the time of discharge, Osmar is calm, cooperative, and makes good eye contact. He is alert and oriented x3. His grooming is adequate. His speech pace is normal. His thought processes are logical. He is not psychotic, not delusional. He denies AH, VH, SI, and HI. His insight and judgment are fair to good. He is willing to follow up and he is urged to see his therapist, Mariama Baker and his doctor, Dr. Solitario Darnell. DISCHARGE INSTRUCTIONS TO THE PATIENT: A. Medications: 1. Klonopin 0.5 daily p.r.n. anxiety. 2. Clonidine 0.2 mg at bedtime. 3. Depakote ER 500 mg b.i.d. 4. Lamictal 25 mg at bedtime. 5. Lisinopril 12.5 mg daily. 6. Latuda 120 mg at bedtime. 7. Lopressor 25 mg b.i.d. 8. Sudafed 60 mg q.6 hours p.r.n. nasal congestion. B. Diet is regular. C. Activities are as tolerated. He is a smoker and he has declined tobacco cessation products at this time. If he decides to change his mind, he can access the Smokers' Quitline at [phone]. There are no studies pending at the time of discharge. D. Followup care: Osmar has appointments at [facility] with Mariama Baker and Dr. Solitario Darnell on in the late afternoon. E. Substance abuse followup is not indicated. HOSPITAL COURSE: Part A: Chief complaint: "I had a triggering event yesterday and my suicidal thoughts were getting intensified." This is a 32-year-old male , who reports that he lost his mother on 05/04/18 from a cardiac event at [facility]. According to him, there was an error on the part of the doctors who failed to put a stent in her heart, which collapsed and she ended up dying. Again, this is his claim. Since then, he has been dealing with the loss and going through the mourning. Day before yesterday, when he was with his therapist, he saw one of his ex-girlfriends and tried to have a friendly conversation with her. He was rejected. He then tried to connect with her on the phone again and was rejected once again, which triggered his emotions and then he was thinking about suicide once again. He reports that since then, he has been feeling hopeless and helpless as in his mind nothing good can happen in his life. Otherwise, he says he was more or less at baseline taking his medications as prescribed and trying to deal with the loss of his mother. He denied experiencing any hallucinations, delusions, and is not thinking about suicide anymore at this time. Part B: Psychiatric treatment was rendered. Osmar was admitted to the Adult Behavioral Unit and placed on 15-minute checks for safety, which the restrictions were loosened and he then went to 30-minute checks with staff pass allowed. Osmar did well on the unit and went to groups. He interacted with his peers well. There were no med changes. His affect is incongruent with his recent thoughts of suicide. He seems relaxed, happy, content and had no complaints. Interestingly, he spoke to his girlfriend, who interpreted his conversation as complaints that he wanted to be discharged and she left quite an intense message stating "give me one good reason why he is not discharged today." In this context, as Osmar was no longer endorsing suicidal ideation, we had made no med changes, and he was pleasant. We determined that discharge was appropriate for him on 06/20/18. A electronic organ technician consult was entered. He knows Alfonso Lewis and wanted to meet with him and therefore he did. Their topic was grieving for Osmar's mother. Osmar is improved. As I stated, his affect is bright. He denies suicidality. He states he was never really suicidal, he was just having those thoughts. He did bring himself to the hospital and is taking himself home.From 11/16/2017, his hemoglobin A1c is 4.9%. Triglycerides are 84, cholesterol 186, LDL cholesterol 118, HDL cholesterol 45.2. From this visit, TSH 0.98. FAITH VERDUZCO, MOTORCYCLE ASSEMBLER [id number]/CPS #: [id number] LOVELY
== END 2018-06-20 17:15 | disposition home or self-care (01) | DRG 753 ==
LOC: ED 18:25 → BSU 06-16 13:39
PROVIDERS: ADMIT Psychiatry & Neurology Psychiatry; ATTEND Psychiatry & Neurology Psychiatry
DX: F31.60 Bipolar disorder, current episode mixed, unspecified (principal); R45.851 Suicidal ideations; F43.21 Adjustment disorder with depressed mood; G43.909 Migraine, unspecified, not intractable, without status migrainosus; I10 Essential (primary) hypertension; E66.9 Obesity, unspecified; F41.1 Generalized anxiety disorder; F60.3 Borderline personality disorder; F90.9 Attention-deficit hyperactivity disorder, unspecified type; F43.10 Post-traumatic stress disorder, unspecified; F17.210 Nicotine dependence, cigarettes, uncomplicated; Z91.5 Personal history of self-harm; Z88.1 Allergy status to other antibiotic agents; Z81.8 Family history of other mental and behavioral disorders; Z82.49 Family history of ischemic heart disease and other diseases of the circulatory system; Z72.89 Other problems related to lifestyle; Z23 Encounter for immunization; Z68.31 Body mass index [BMI] 31.0-31.9, adult
CPT/HCPCS: 36415; 80053; 80175; 80178; 80307; 80320; 80329; 81003; 81015; 84443; 85025; 87086; 90686; 90732; 99222; 99233; 99238; 99284; A9270-GY; G0480

== ENCOUNTER 2018-08-18 00:56 | Emergency (ER) | payer OTHER ==
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
[2018-08-18] MEDS ORDERED: LORazepam INJ* 2 MG/ML 1 ML VIAL IM ONE (02:26)
[2018-08-18] MEDS ORDERED: Haloperidol INJ IV/IM* 5 MG/ML AMP IM ONE (02:26)
[2018-08-18] MEDS ORDERED: diPHENhydraMINE IV* 50 MG/ML 1 ml VIAL (BENADRYL) IM ONE (02:26)
[2018-08-18] MEDS ORDERED: hydrOXYzine IM* 50 MG/ML VIAL ONE (02:34)
[2018-08-18 02:59] LABS: Urine Appearance Clear; Urine Blood 3+ (Negative); Urine Color Yellow; Urine Ketones Negative (Negative); Urine Protein Negative (Negative); Urine Red Blood Cell Trace(0-2/hpf) (Absent); Urine Specific Gravity 1.009 (1.010-1.030); Urine Urobilinogen Negative (Negative); Urine White Blood Cell Trace(0-5/hpf) (Absent)
[2018-08-18 03:07] LABS: ABS Basophils 0 10^3/ul (0-0.2); ABS Eosinophils 0.3 10^3/ul (0-0.6); ABS Monocytes 0.9 10^3/ul (0-0.8); ABS Neutrophils 5.4 10^3/ul (1.5-7.7); ABS Nucleated RBC 0 10^3/ul; Eosinophil % 3.8 %; Hematocrit 47 % (42-52); Hemoglobin 16.4 g/dl (14.0-18.0); Lymphocyte % 22.9 %; Mean Corpuscular HGB Conc 35 g/dl (31-36); Mean Corpuscular Hemoglobin 31 pg (27-31); Mean Corpuscular Volume 89 fL (80-94); Mean Platelet Volume 7.6 fL (7.4-10.4); Nucleated Red Blood Cells % 0.2; Platelet Count 329 10^3/ul (150-450); Red Blood Count 5.35 10^6/ul (4.00-5.40); Red Cell Distribution Width 13 % (10.5-15); White Blood Count 8.6 10^3/ul (3.5-10.8)
[2018-08-18 03:24] LABS: EGFR Non-African American 116.9 (>60)
[2018-08-18] MEDS ORDERED: Mouth Piece, Nicotine* 1 EACH CARTRIDGE ONE (04:49)
--- NOTE | 2018-08-18 07:07 | ED ---
Progress - Progress Note Progress Note: 08/18/2018 07:00 hrs - Receiving patient sign out at the change of shift from Dr. Alvaro Wolf MD due to a pending MHE 10:55- The pt will be discharged by Dr. Scott with a fianl Dx of borderline personality disorder. He has an outpatient appointment with the [facility] on 09/07/2018 at 09:00 am. Course/Dx - Diagnoses Provider Diagnoses: Depression, Borderline personality disorder Discharge - Sign-Out/Discharge Documenting (check all that apply): Patient Departure - Discharge Plan Condition: Stable Disposition: HOME Referrals: Rod Pollock MD [Primary Care Provider] - [facility] [Outside] Additional Instructions: Return to ED for any new or worsening symptoms - Billing Disposition and Condition Condition: STABLE Disposition: Home - Attestation Statements Document Initiated by Scribe: Yes Documenting Scribe: Orly Emanuel Provider For Whom Scribe is Documenting (Include Credential): Dr. Buck Fischer MD Scribe Attestation: Orly Ramirez scribed for Dr. Buck Fischer MD on 08/18/18 at 1146. Scribe Documentation Reviewed: Yes Provider Attestation: The documentation as recorded by the Orly arcos accurately reflects the service I personally performed and the decisions made by , Dr. Buck Fischer MD Status of Scribe Document: Viewed
[2018-08-18 10:58] VITALS: BP 122/60
== END 2018-08-18 12:31 | disposition home or self-care (01) ==
LOC: ED 00:56
DX: F32.9 Major depressive disorder, single episode, unspecified (principal); F60.3 Borderline personality disorder; Z88.1 Allergy status to other antibiotic agents; Z88.8 Allergy status to other drugs, medicaments and biological substances; F17.210 Nicotine dependence, cigarettes, uncomplicated
CPT/HCPCS: 36415; 80053; 80307; 80320; 80329; 81003; 81015; 84443; 85025; 87086; 96372; 99285; G0480; J1630; J2060; J3410

== ENCOUNTER 2018-11-16 17:46 | Emergency (ER) | payer OTHER ==
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
[2018-11-16] MEDS ORDERED: Ketorolac INJ* 30 MG/ML 1 ML VIAL IM ONE (19:38)
[2018-11-16] MEDS ORDERED: Dexamethasone TAB* 4 MG PO ONE (19:38)
[2018-11-16 19:53] VITALS: BP 132/87
== END 2018-11-16 19:53 | disposition home or self-care (01) ==
LOC: ED 17:46
DX: M54.9 Dorsalgia, unspecified (principal); I10 Essential (primary) hypertension; R00.0 Tachycardia, unspecified; F90.9 Attention-deficit hyperactivity disorder, unspecified type; F41.9 Anxiety disorder, unspecified; F31.9 Bipolar disorder, unspecified; Z88.1 Allergy status to other antibiotic agents; Z88.8 Allergy status to other drugs, medicaments and biological substances; F17.210 Nicotine dependence, cigarettes, uncomplicated
CPT/HCPCS: 72070; 72110; 96372; 99282; J1885; J8540

== ENCOUNTER → 2018-11-19 20:45 | Emergency (ER) | payer OTHER ==
[~2018-11-19 20:45] MED LIST: Diazepam TAB(*) 5 MG PO ONE
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
[2018-11-19 22:19] VITALS: BP 152/79
== END | disposition home or self-care (01) ==
LOC: ED 20:45
DX: M54.9 Dorsalgia, unspecified (principal); M62.838 Other muscle spasm; F17.210 Nicotine dependence, cigarettes, uncomplicated; I10 Essential (primary) hypertension; F90.9 Attention-deficit hyperactivity disorder, unspecified type; F31.9 Bipolar disorder, unspecified; W19.XXXA Unspecified fall, initial encounter; Y92.9 Unspecified place or not applicable
CPT/HCPCS: 99281; A9270-GY

== ENCOUNTER 2018-12-27 02:08 | Inpatient (IN) | payer OTHER ==
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
[2018-12-27 04:26] LABS: Urine Benzodiazepine Screen None Detected (None Detect); Urine Opiates Screen None Detected (None Detect)
[2018-12-27 05:17] LABS: ABS Basophils 0.1 10^3/ul (0-0.2); ABS Eosinophils 0.1 10^3/ul (0-0.6); ABS Lymphocytes 2.2 10^3/ul (1.0-4.8); ABS Neutrophils 6.1 10^3/ul (1.5-7.7); ABS Nucleated RBC 0 10^3/ul; Eosinophil % 1.2 %; Hematocrit 44 % (36-46); Hemoglobin 15.5 g/dL (14.0-18.0); Lymphocyte % 23.3 %; Mean Corpuscular HGB Conc 35 g/dL (31-36); Mean Corpuscular Hemoglobin 31 pg (27-31); Mean Corpuscular Volume 88 fL (80-94); Mean Platelet Volume 7.8 fL (7.4-10.4); Nucleated Red Blood Cells % 0.1; Platelet Count 339 10^3/uL (150-450); Red Blood Count 5.01 10^6 /uL (4.18-5.48); Red Cell Distribution Width 13 % (10.5-15); White Blood Count 9.4 10^3/uL (3.5-10.8)
[2018-12-27 05:24] LABS: Urine Appearance Cloudy; Urine Bacteria Absent (Absent); Urine Bilirubin Negative (Negative); Urine Blood 2+ (Negative); Urine Color Yellow; Urine Glucose Negative (Negative); Urine Ketones Trace (Negative); Urine Nitrite Negative (Negative); Urine Protein Negative (Negative); Urine Red Blood Cell 2+(6-10/hpf) (Absent); Urine Specific Gravity 1.015 (1.010-1.030); Urine Urobilinogen Negative (Negative); Urine White Blood Cell Trace(0-5/hpf) (Absent)
[2018-12-27 05:36] LABS: ALT 30 U/L (7-52); AST 21 U/L (13-39); Albumin 4.8 g/dL (3.2-5.2); Albumin/Globulin Ratio 1.8 (1-3); Alkaline Phosphatase 100 U/L (34-104); Anion Gap 9 mmol/L (2-11); BUN/Creatinine Ratio 16.7 (8-20); Blood Urea Nitrogen 15 mg/dL (6-24); CO2 Carbon Dioxide 26 mmol/L (22-32); Calcium 10.1 mg/dL (8.6-10.3); Chloride 101 mmol/L (101-111); EGFR African American 119.1 (>60); EGFR Non-African American 98.4 (>60); Globulin 2.7 g/dL (2-4); Glucose 118 mg/dL (70-100); Sodium 136 mmol/L (135-145); Total Protein 7.5 g/dL (6.4-8.9)
[2018-12-27 06:09] LABS: Acetaminophen < 15 mcg/mL; Alcohol < 10 mg/dL (<10); Salicylate < 2.50 mg/dL (<30)
[2018-12-27] MEDS ORDERED: Acetaminophen TAB* 325 MG PO PRN (08:58)
[2018-12-27] MEDS ORDERED: Mouth Piece, Nicotine* 1 EACH CARTRIDGE INH SCH (08:58)
[2018-12-27] MEDS ORDERED: Nicotine GUM* 2 MG PO PRN (08:58)
[2018-12-27] MEDS ORDERED: Al Hydrox/Mg Hydrox/Simet LIQ* 30 ML UDC PO PRN (08:58)
[2018-12-27] MEDS ORDERED: Hydrochlorothiazide TAB* 25 MG PO SCH (09:15)
[2018-12-27] MEDS ORDERED: Lisinopril TAB* 10 MG PO SCH (09:15)
[2018-12-27] MEDS: Lisinopril TAB* 10 MG PO SCH ×2 (09:44→20:35)
[2018-12-27] MEDS: Hydrochlorothiazide TAB* 25 MG PO SCH ×2 (09:44→20:36)
[2018-12-27] MEDS: lamoTRIgine TAB(*) 100 MG PO SCH ×2 (09:44→20:41)
[2018-12-27] MEDS: Metoprolol Tartrate TAB* 50 mg PO SCH ×2 (09:44→20:36)
[2018-12-27] MEDS: Divalproex ER TAB(*) 500 MG PO SCH ×2 (09:44→20:38)
[2018-12-27] MEDS: Vitamin THERAPEUTIC TAB PO SCH (09:44)
[2018-12-27] MEDS: Nicotine Inhaler* 10 MG AMP INH PRN ×2 (09:52→15:32)
--- NOTE | 2018-12-27 16:00 | PN ---
BSU: Group Therapy Note - Service Type Service Type: [id number] Group Psychotherapy - Group Participation Patient Participating in Group: Yes Level of Group Participation: Attentive Relatedness to Group: Defended - Additional Group Comments Group Comments: Osmar participated well and made good effort at being involved and relevant. He shared his love of pharmacology and demonstrated that he had wide ranging interests.
--- NOTE | 2018-12-27 17:02 | HP ---
HISTORY AND PHYSICAL: DATE OF ADMISSION: 12/27/18 PROVIDER: Faith Verduzco NP, in Psychiatry. SUPERVISING PHYSICIAN: Dr. Dhillon * (DICTATED BY FAITH VERDUZCO NP) JUSTIFICATION FOR ADMISSION: The patient is in need of 24-hour supervision and care secondary to suicidal ideation. CHIEF COMPLAINT: "I am dealing with a lot of losses." HISTORY OF PRESENT ILLNESS: Osmar is a 33-year-old single white male with a history of bipolar 2 or 1, depending on which diagnosis you read, disorder, who arrives brought in by car and is here on a voluntary status after stating that he is having suicidal ideation following the realization that he does not have a lot of support at home and he is losing many people in his life and he had to go to a appssavvy office to prepare to sell his mother's house. Osmar has been to the hospital several times, 6 times since 2003, most recently before this in June of 2018. Osmar explains his reasons for being here somewhat dramatically. He has lost his mother. She and he also has had loss of finances, he states, due to his girlfriend, Елена being inpatient and he did not go to work so that he could be busy taking care of her. He states he was also in the process of saving money to pay off a student loan that is in default and instead had to pay his father's taxes, which were not his responsibility. He states in addition that his girlfriend, Елена, stated she did not want to him, which he wanted because he wanted them to adopt a child. He states that his father tells him he is going to be in 2 years and he wants to have next of kin. When questioned further about this, it became a blurry description that ended in an unclear conclusion. He states that he has problems with abandonment that are coming prior to the current relationships he has and he does put some of the onus on Елена as she is the one, he states, who does not want to adjust. Osmar reports inconsistent sleep, sometimes sleeping 3 hours a night, sometimes sleeping 9 hours a night. He is not interested in much. He is racked with guilt that is not necessarily his to have, but he maintains that he cannot shake the beliefs that are causing him to feel so guilty. His energy is low. He cannot concentrate, but that could be due to the ADHD that is only minorly treated due to his inability to tolerate higher doses of stimulants. He is having suicidal ideation. Osmar states that he does not cope well with things. He stated one day he was having what he described as manic behavior, which does actually not rise to the level or description of mallory. He states that he engaged in some photography of the sunrise and that was one of the only things that helped him cope. PAST PSYCHIATRIC HISTORY: He has had 6 hospitalizations at this hospital, the most recent in June of 2018. He also was hospitalized at [facility] for 7 days last [id number] ago for an overdose on his medications in the context of severe depression. Prior to that, he states he has attempted suicide one other time. He cannot state when it was. At this time, he does not have a plan to suicide, but he feels as though the threat is real. He sees Dr. Darnell at [facility] and he sees Mariama Baker LCSW as his therapist. PAST MEDICAL HISTORY: Osmar has hypertension and migraine headaches. MEDICATIONS: He is on several medications includin. Metoprolol 50 mg b.i.d. 2. Depakote 500 mg b.i.d. 3. Adderall 5 mg daily. 4. Lamictal 100 mg b.i.d. 5. Clonidine 0.2 mg at bedtime. 6. Lisinopril/HCTZ 12.5 mg b.i.d. ALLERGIES: No known drug allergies. FAMILY HISTORY: He is the only child from his parents and denies any family history of mental illness. SOCIAL HISTORY: Osmar is single. He has a girlfriend, named, Елена. 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 He stated in the past that he was engaged to Елена, but at this point, she told him that she does not want to get . He has financial issues. He cannot pay his student loan which is in default. There is collateral that is not yet confirmed that he has quit his job and he denies any legal problems. PHYSICAL EXAMINATION GENERAL: The patient is a well-developed and nourished male, who refused to get into blue paper scrubs and is not in acute respiratory distress at this time. VITAL SIGNS: On 12/27/18 at 10:41 a.m., temperature was 98.2, pulse 107, respirations 16, O2 sat on room air 99%, blood pressure 172/77. HEENT: Head and Face: No signs of trauma. No ecchymosis, hematomas, or skull depressions. No sinus tenderness. Eyes: PERRLA. EOMI x2. No injected conjunctivae. No nystagmus. Ears: Hearing grossly intact. Ear canals and tympanic membranes are within normal limits. Mouth: Oropharynx within normal limits. NECK: Supple. Trachea is midline. No adenopathy. No JVD. No carotid bruits. No C-spine tenderness. Neck with full range of motion. CHEST: Symmetrical. No tenderness to palpation. LUNGS: Clear to auscultation bilaterally. No wheezing or crackles. CARDIOVASCULAR: Regular rate and rhythm. S1 and S2 present. No murmurs or gallops appreciated. ABDOMEN: Soft, nontender. No signs of distention. No rebound, no guarding and no masses palpated. Bowel sounds are normal. EXTREMITIES: Full range of motion in all major joints. No edema. No cyanosis or clubbing. NEURO: Alert and oriented x4. No acute neurological deficits. Speech is normal and Osmar follows commands. PSYCH: No suicidal thoughts, but he does not want to live, he wants to . SKIN: Dry and warm. LABORATORY DATA: Most laboratory data are within normal limits, exceptions include absolute monocytes high at 1.0, glucose is high at 118. Urine: There are ketones present, blood is present, red blood cells are present. Toxicology has positive results for an amphetamine screen, which makes sense as he is taking Adderall daily. MENTAL STATUS EXAM: This is a healthy-appearing, somewhat obese male. He is dressed in a sweater with a quarter zip collar. He is well groomed with fair personal hygiene. He is alert and oriented to time, space, person and situation. He states he is depressed. He appears to be dysphoric and is guilt ridden and self-deprecating. His speech is normal in all spheres. His intelligence appears to be average as evidenced by his vocabulary and fund of knowledge. His memory functions are intact in all spheres. There is no evidence of thought perceptual or psychomotor disturbances. He denies suicidal plans or homicidal ideation. Insight and judgment appears to be fair. DIAGNOSES: Bipolar I disorder by history, attention deficit hyperactivity disorder by history, adjustment disorder. IMPRESSION: Osmar is a 33-year-old man who comes to the hospital with a passive wish, which has been repeated many times in his history. At this time, it is different because the losses that he has appreciated are more completely detrimental to him, in that his major relationships and his finances are both in poor standing. PLAN: Osmar is admitted to the adult behavioral health unit and placed on q.15 minute checks for his own safety. He is encouraged to participate in supportive milieu, individual and group therapies. Estimated length of stay is 3 to 7 days. We will not be obtaining an MMPI for diagnostic clarification at this time. We will titrate medications to efficacy and monitor for mood and thought content. Discharge planning will include his outpatient providers. Discharge will likely occur on 12/28/18. FAITH VERDUZCO, THEO [id number]/[facility] #: [id number] LOVELY
[2018-12-27] MEDS ORDERED: cloNIDine TAB* 0.1 MG PO SCH (21:00)
[2018-12-28 08:03] VITALS: BP 121/74
[2018-12-28] MEDS: Vitamin THERAPEUTIC TAB PO SCH (08:06)
[2018-12-28] MEDS: Metoprolol Tartrate TAB* 50 mg PO SCH (08:06)
[2018-12-28] MEDS: lamoTRIgine TAB(*) 100 MG PO SCH (08:07)
[2018-12-28] MEDS: Lisinopril TAB* 10 MG PO SCH (08:07)
[2018-12-28] MEDS: Hydrochlorothiazide TAB* 25 MG PO SCH (08:08)
[2018-12-28] MEDS: Divalproex ER TAB(*) 500 MG PO SCH (08:09)
[2018-12-28] MEDS: Nicotine Inhaler* 10 MG AMP INH PRN (08:10)
[2018-12-28] MEDS ORDERED: Amphetamine MIXED SALT TAB* 10 MG TAB PO SCH (09:00)
--- NOTE | 2018-12-28 13:23 | PN ---
BSU: Group Therapy Note - Service Type Service Type: 50204 Group Psychotherapy - Cognitive Behavioral Group Therapy ( CBT):Patient was attentive and participatory in CBT programming this morning, and remained in good behavioral control. Patient expressed positive insights regarding relevant treatment interventions and goals. Osmar engages in therapy interferance at times, but is redirectable back to topic. 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
--- NOTE | 2018-12-28 13:31 | DCNOTE ---
Subjective - Subjective Service Types: 11734 Hosp DC Day Mgmt simple under 30 min Discharge Date: 12/28/18 Subjective: Osmar met his requirements to leave. He is safe and pleasant. he went to groups. he took medications and he is prepared to follow new recommendations such as increasing risperidone to 1.5 mg at bedtime and not taking any in the morning. Objective - Appearance Appearance: Obese Dysmorphic Features: No Hygiene: Normal Grooming: Disheveled - Behavior Psychomotor Activities: Normal Exhibits Abnormal Movement: No - Attitude and Relatedness Attitude and Relatedness: Cooperative Eye Contact: Good - Speech Quality: Unpressured Latencies: Normal Quantity: Appropriate - Mood Patient's Decription of Mood: "Okay" - Affect Observed Affect: Non-labile Affect Consistent with: Euthymia - Thought Process Patient's Thought Process: Coherent Thought Content: Yes Passive Wish, No Suicidal Planning, No Homicidal Ideation, No Paranoid Ideation - Sensorium Experiencing Hallucinations: No, Sensorium is Clear Type of Hallucinations: Visual: No, Auditory: No, Command: No - Level of Consciousness Level of Consciousness: Alert Orientation: Yes Intact, Yes Orientated to Time, Yes Orientated to Place, Yes Orientated to Person - Impulse Control Impulse Control: Intact - Insight and Judgement Insight and Judgement: Fair - Group Participation Particating in Group Activities: Yes - Medication Management Medication Management Adherence: Yes DC Assessment - Assessment Merits Inpatient Hospitalization: No Clear for Discharge: Adequate Clinical Respons, Acceptable Safety Profile, Low Utility of Inpt Care Discharge Planning - Discharge Planning Discharge Plan: Outpatient Follow Up Outpatient Program: [facility] Recommendations for Continuing Care: Medication Management, Psychotherapy Medications: Current Medications Acetaminophen (Tylenol Tab*) 650 mg PO Q4H PRN PRN Reason: PAIN or TEMP > 101 F Al Hydrox/Mg Hydrox/Simethicone (Maalox Plus*) 30 ml PO Q4H PRN PRN Reason: INDIGESTION Amphetamine/Dextroamphetamine (Adderall Tab*) 5 mg PO DAILY [facility] Last Admin: 12/28/18 08:04 Dose: Not Given Clonidine HCl (Catapres Tab*) 0.2 mg PO BEDTIME [facility] Last Admin: 12/27/18 20:35 Dose: 0.2 mg Device (Nicotine Mouth Piece*) 1 each INH .[place] [facility] Divalproex Sodium (Depakote Er Tab(*)) 500 mg PO BID [facility] Last Admin: 12/28/18 08:09 Dose: 500 mg Hydrochlorothiazide (Hydrodiuril Tab*) 12.5 mg PO BID [facility] Last Admin: 12/28/18 08:08 Dose: 12.5 mg Lamotrigine (Lamictal Tab(*)) 100 mg PO BID [facility] Last Admin: 12/28/18 08:07 Dose: 100 mg Lisinopril (Prinivil Tab*) 20 mg PO BID [facility] Last Admin: 12/28/18 08:07 Dose: 20 mg Metoprolol Tartrate (Lopressor Tab*) 50 mg PO BID [facility] Last Admin: 12/28/18 08:06 Dose: 50 mg Multivitamins (Theragran Tab*) 1 tab PO DAILY [facility] Last Admin: 12/28/18 08:06 Dose: 1 tab Nicotine (Nicotine Inhaler*) 10 mg INH Q2H PRN PRN Reason: CRAVING Last Admin: 12/28/18 08:10 Dose: 10 mg Nicotine Polacrilex (Nicotine Gum*) 2 mg PO Q2H PRN PRN Reason: CRAVING Risperidone (Risperdal*) 1.5 mg PO BEDTIME [facility] Discharge Planning: Prescriptions provided for discharge [] Yes [] No Follow up care details as per social work arrangements. Patient response to discharge plan: [] eager for discharge [x] agreeable with discharge plan [] ambivalent about discharge [] disagrees with discharge today
[2018-12-28 13:43] LABS: Cholesterol 233 mg/dL; HDL Cholesterol 34.7 mg/dL; LDL Cholesterol 174 mg/dL; Triglycerides 124 mg/dL
[2018-12-28] MEDS ORDERED: risperiDONE TAB* 1 MG PO SCH (21:00)
== END 2018-12-28 14:30 | disposition home or self-care (01) | DRG 754 ==
LOC: ED 02:08 → BSU 07:30
PROVIDERS: ADMIT Psychiatry & Neurology Psychiatry; ATTEND Psychiatry & Neurology Psychiatry
DX: F43.21 Adjustment disorder with depressed mood (principal); R45.851 Suicidal ideations; F31.9 Bipolar disorder, unspecified; F90.9 Attention-deficit hyperactivity disorder, unspecified type; I10 Essential (primary) hypertension; G43.909 Migraine, unspecified, not intractable, without status migrainosus; Z79.899 Other long term (current) drug therapy
CPT/HCPCS: 36415; 80053; 80061; 80307; 80320; 80329; 81003; 81015; 83036; 84443; 85025; 87086; 90853; 99222; 99238; 99284; A9270-GY; G0480

== ENCOUNTER 2019-07-04 00:38 | Emergency (ER) | payer OTHER ==
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
[2019-07-04 01:14] LABS: ABS Basophils 0.1 10^3/ul (0-0.2); ABS Eosinophils 0.4 10^3/ul (0-0.6); ABS Lymphocytes 2.8 10^3/ul (1.0-4.8); ABS Neutrophils 5.4 10^3/ul (1.5-7.7); Eosinophil % 4.1 %; Hematocrit 49 % (42-52); Hemoglobin 16.8 g/dL (14.0-18.0); Mean Corpuscular HGB Conc 35 g/dL (31-36); Mean Corpuscular Hemoglobin 30 pg (27-31); Mean Corpuscular Volume 88 fL (80-94); Mean Platelet Volume 7.8 fL (7.4-10.4); Platelet Count 291 10^3/uL (150-450); Red Blood Count 5.54 10^6 /uL (4.18-5.48); Red Cell Distribution Width 14 % (10-15); White Blood Count 9.7 10^3/uL (3.5-10.8)
[2019-07-04 01:29] LABS: Urine Benzodiazepine Screen None Detected (None Detect); Urine Opiates Screen None Detected (None Detect)
[2019-07-04 01:36] LABS: ALT 31 U/L (7-52); AST 20 U/L (13-39); Albumin 4.6 g/dL (3.2-5.2); Albumin/Globulin Ratio 1.5 (1-3); Alkaline Phosphatase 88 U/L (34-104); Anion Gap 9 mmol/L (2-11); BUN/Creatinine Ratio 13.9 (8-20); Blood Urea Nitrogen 11 mg/dL (6-24); CO2 Carbon Dioxide 25 mmol/L (22-32); Calcium 9.5 mg/dL (8.6-10.3); Chloride 101 mmol/L (101-111); EGFR African American 138.4 (>60); EGFR Non-African American 114.4 (>60); Globulin 3.1 g/dL (2-4); Glucose 91 mg/dL (70-100); Potassium 3.4 mmol/L (3.5-5.0); Sodium 135 mmol/L (135-145); Total Protein 7.7 g/dL (6.4-8.9)
[2019-07-04 01:44] LABS: Urine Appearance Cloudy; Urine Bacteria Absent (Absent); Urine Bilirubin Negative (Negative); Urine Blood 2+ (Negative); Urine Color Yellow; Urine Glucose Negative (Negative); Urine Ketones Trace (Negative); Urine Nitrite Negative (Negative); Urine Protein Negative (Negative); Urine Red Blood Cell Absent (Absent); Urine Specific Gravity 1.023 (1.010-1.030); Urine Urobilinogen Negative (Negative); Urine White Blood Cell Absent (Absent)
[2019-07-04 01:56] LABS: Acetaminophen < 15 mcg/mL; Alcohol < 10 mg/dL (<10); Salicylate < 2.50 mg/dL (<30)
[2019-07-04 02:12] LABS: TSH (Thyroid Stimulating Horm) 1.84 mcIU/mL (0.34-5.60)
--- NOTE | 2019-07-04 07:08 | ED ---
Progress - Progress Note Progress Note: This patient was signed out from Dr. Estevez upon shift change on 07/04/19 at 07: 00 pending evaluation by psychiatry and disposition. Re-Evaluation - Re-Evaluation First Eval Re-Evaluation Time: 11:19 Comment: patient will be discharged per mental health optics engineer - will contract for safety. Pt will have appointments scheduled for with his mental health provider and PCP. Per mental health optics engineer, collargeral was obtained from spouse Second Eval Re-Evaluation Time: 11:51 Comment: patient requesting medications per ED aide Course/Dx - Diagnoses Provider Diagnoses: Major depression - Provider Notifications Time Discussed With Above Provider: 11:19 Instructed by Provider To: Other - Mental health optics engineer reviewed case with Dr. Pereyra, psychiatry. They recommend discharge. Mental health optics engineer will set up a safety plan for patient to ensure he continues to see his therapist and doctor in the community and make appointments. Per mental health optics engineer, patient's states that patient has stopped taking his medications so mental health will ensure that he is restarted appropriately on his medications. Discharge ED - Sign-Out/Discharge Documenting (check all that apply): Patient Departure - Discharge Receiving patient FROM: Padmini Estevez - Discharge Plan Condition: Stable Disposition: HOME Referrals: Rod Pollock MD [Medical Doctor] - - Billing Disposition and Condition Condition: STABLE Disposition: Home - Attestation Statements Document Initiated by Scribe: Yes Documenting Scribe: Courtney Hummel Provider For Whom Rip is Documenting (Include Credential): Reema Miranda MD Scribe Attestation: I, Courtney Hummel, scribed for Reema Miranda MD on 07/08/19 at 1627. Scribe Documentation Reviewed: Yes Provider Attestation: The documentation as recorded by the Courtney arcos accurately reflects the service I personally performed and the decisions made by me, Reema Miranda MD Status of Scribe Document: Viewed Procedures - Sedation Patient Received Moderate/Deep Sedation with Procedure: No
[2019-07-04 12:33] VITALS: BP 160/98
--- NOTE | 2019-07-04 16:27 | PN ---
ED Psychiatric Progress Note Date of Service: 07/04/19 Subjective: This is a 33 year-old M who is pending discharge to home. Pt offers no complaints at this time or is c/o feeling overwhelmed. Osmar states he's not sure about admission. he cannot decide if he needs it or not until we discuss his easy frustration, as demonstrated in the emergency department when socks don't fit, that admission will likely be a "trigger" for him in that he will not be able to tolerate policy and procedure issues that currently bother him. He will write a safety plan and be discharged. Vital Signs Temp Pulse Resp BP Pulse Ox 98.2 F 69 16 160/98 99 07/04/19 12:32 07/04/19 12:32 07/04/19 12:32 07/04/19 12:32 07/04/19 12:32 Lab Results - Entire Visit 07/04/19 07/04/19 07/04/19 01:07 01:07 01:00 WBC 9.7 RBC 5.54 H Hgb 16.8 Hct 49 MCV 88 MCH 30 MCHC 35 RDW 14 Plt Count 291 MPV 7.8 Neut % (Auto) 55.7 Lymph % (Auto) 29.0 Page % (Auto) 10.2 Eos % (Auto) 4.1 Baso % (Auto) 1.0 Absolute Neuts (auto) 5.4 Absolute Lymphs (auto) 2.8 Absolute Monos (auto) 1.0 H Absolute Eos (auto) 0.4 Absolute Basos (auto) 0.1 Absolute Nucleated RBC 0.0 Nucleated RBC % 0.0 Sodium 135 Potassium 3.4 L Chloride 101 Carbon Dioxide 25 Anion Gap 9 BUN 11 Creatinine 0.79 Est GFR ( Amer) 138.4 Est GFR (Non-Af Amer) 114.4 BUN/Creatinine Ratio 13.9 Glucose 91 Calcium 9.5 Total Bilirubin 0.40 AST 20 ALT 31 Alkaline Phosphatase 88 Total Protein 7.7 Albumin 4.6 Globulin 3.1 Albumin/Globulin Ratio 1.5 TSH 1.84 Urine Color Urine Appearance Urine pH Ur Specific [place] Urine Protein Urine Ketones Urine Blood Urine Nitrate Urine Bilirubin Urine Urobilinogen Ur Leukocyte Esterase Urine WBC (Auto) Urine RBC (Auto) Calcium Oxalate Crystal Urine Bacteria Urine Glucose Salicylates < 2.50 Urine Opiates Screen None detected Acetaminophen < 15 Ur Barbiturates Screen None detected Ur Phencyclidine Scrn None detected Ur Amphetamines Screen Presumptive positive A U Benzodiazepines Scrn None detected Urine Cocaine Screen None detected U Cannabinoids Screen Presumptive positive A Serum Alcohol < 10 07/04/19 01:00 WBC RBC Hgb Hct MCV MCH MCHC RDW Plt Count MPV Neut % (Auto) Lymph % (Auto) Page % (Auto) Eos % (Auto) Baso % (Auto) Absolute Neuts (auto) Absolute Lymphs (auto) Absolute Monos (auto) Absolute Eos (auto) Absolute Basos (auto) Absolute Nucleated RBC Nucleated RBC % Sodium Potassium Chloride Carbon Dioxide Anion Gap BUN Creatinine Est GFR ( Amer) Est GFR (Non-Af Amer) BUN/Creatinine Ratio Glucose Calcium Total Bilirubin AST ALT Alkaline Phosphatase Total Protein Albumin Globulin Albumin/Globulin Ratio TSH Urine Color Yellow Urine Appearance Cloudy Urine pH 5.0 Ur Specific [place] 1.023 Urine Protein Negative Urine Ketones Trace A Urine Blood 2+ A Urine Nitrate Negative Urine Bilirubin Negative Urine Urobilinogen Negative Ur Leukocyte Esterase Negative Urine WBC (Auto) Absent Urine RBC (Auto) Absent Calcium Oxalate Crystal Present A Urine Bacteria Absent Urine Glucose Negative Salicylates Urine Opiates Screen Acetaminophen Ur Barbiturates Screen Ur Phencyclidine Scrn Ur Amphetamines Screen U Benzodiazepines Scrn Urine Cocaine Screen U Cannabinoids Screen Serum Alcohol
== END 2019-07-04 12:15 | disposition home or self-care (01) ==
LOC: ED 00:38
DX: R45.851 Suicidal ideations (principal); F32.9 Major depressive disorder, single episode, unspecified; I10 Essential (primary) hypertension; F41.9 Anxiety disorder, unspecified; F90.9 Attention-deficit hyperactivity disorder, unspecified type; F17.210 Nicotine dependence, cigarettes, uncomplicated; Z79.899 Other long term (current) drug therapy; Z88.1 Allergy status to other antibiotic agents; Z88.8 Allergy status to other drugs, medicaments and biological substances
CPT/HCPCS: 36415; 80053; 80307; 80320; 80329; 81003; 81015; 84443; 85025; 93005; 99285; G0480

== ENCOUNTER 2019-08-28 13:39 | Inpatient (IN) | payer OTHER ==
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
[2019-08-28 14:30] LABS: ABS Basophils 0.1 10^3/ul (0-0.2); ABS Eosinophils 0.3 10^3/ul (0-0.6); ABS Lymphocytes 2.2 10^3/ul (1.0-4.8); ABS Monocytes 1.2 10^3/ul (0-0.8); ABS Neutrophils 12.3 10^3/ul (1.5-7.7); Eosinophil % 1.6 %; Hematocrit 49 % (42-52); Hemoglobin 17.1 g/dL (14.0-18.0); Lymphocyte % 13.5 %; Mean Corpuscular HGB Conc 35 g/dL (31-36); Mean Corpuscular Hemoglobin 31 pg (27-31); Mean Corpuscular Volume 91 fL (80-94); Mean Platelet Volume 8.1 fL (7.4-10.4); Nucleated Red Blood Cells % 0.1; Platelet Count 324 10^3/uL (150-450); Red Blood Count 5.44 10^6 /uL (4.18-5.48); Red Cell Distribution Width 14 % (10-15); White Blood Count 15.9 10^3/uL (3.5-10.8)
[2019-08-28 15:01] LABS: Albumin 4.6 g/dL (3.2-5.2); Anion Gap 7 mmol/L (2-11); CO2 Carbon Dioxide 30 mmol/L (22-32); Calcium 9.7 mg/dL (8.6-10.3); Chloride 99 mmol/L (101-111); Potassium 4.4 mmol/L (3.5-5.0); Sodium 136 mmol/L (135-145)
[2019-08-28 15:07] LABS: ALT 19 U/L (7-52); AST 15 U/L (13-39); Albumin/Globulin Ratio 1.5 (1-3); Alkaline Phosphatase 75 U/L (34-104); Blood Urea Nitrogen 21 mg/dL (6-24); EGFR Non-African American 41.3 (>60); Globulin 3.1 g/dL (2-4); Glucose 99 mg/dL (70-100); Total Protein 7.7 g/dL (6.4-8.9)
[2019-08-28 15:20] LABS: Acetaminophen < 15 mcg/mL; Alcohol < 10 mg/dL (<10); Salicylate < 2.50 mg/dL (<30)
[2019-08-28 15:36] LABS: TSH (Thyroid Stimulating Horm) 0.84 mcIU/mL (0.34-5.60)
[2019-08-28 16:04] LABS: Urine Appearance Cloudy; Urine Bilirubin Negative (Negative); Urine Blood 1+ (Negative); Urine Color Amber; Urine Glucose Negative (Negative); Urine Ketones Trace (Negative); Urine Nitrite Negative (Negative); Urine Protein 2+(100 mg/dL) (Negative); Urine Specific Gravity 1.013 (1.010-1.030); Urine Urobilinogen Negative (Negative)
[2019-08-28 16:12] LABS: Urine Bacteria Absent (Absent); Urine Red Blood Cell 1+(3-5/hpf) (Absent); Urine White Blood Cell 1+(6-10/hpf) (Absent)
[2019-08-28 16:18] LABS: Urine Benzodiazepine Screen None Detected (None Detect); Urine Opiates Screen None Detected (None Detect)
[2019-08-28 18:19] LABS: Creatine Kinase 82 U/L (10-223)
[2019-08-28] MEDS ORDERED: Nicotine PATCH 21 MG/24 HR* PATCH TRANSDERM ONE (20:41)
--- NOTE | 2019-08-28 21:29 | PN ---
Progress Note - Progress Note Date of Service: 08/28/19 Note: Patient signed out to fl today by Oscar BARON pending mental health evaluation. Mental health evaluation [place] [facility] [place] admitted in stable condition with diagnosis of mood disorder.
[2019-08-28] MEDS ORDERED: cloNIDine TAB* 0.1 MG ONE (23:29)
[2019-08-28] MEDS ORDERED: Metoprolol Tartrate TAB* 50 mg ONE (23:29)
[2019-08-28] MEDS ORDERED: hydrOXYzine HCL TAB* 10 MG ONE (23:30)
[2019-08-28] MEDS ORDERED: Acetaminophen TAB* 325 MG PO PRN (23:33)
[2019-08-28] MEDS ORDERED: Al Hydrox/Mg Hydrox/Simet LIQ* 30 ML UDC PO PRN (23:33)
[2019-08-28] MEDS ORDERED: Lurasidone(*) 80 MG TAB PO SCH (23:45)
[2019-08-29] MEDS: Divalproex ER TAB(*) 500 MG PO SCH ×3 (00:01→20:53)
[2019-08-29] MEDS: Lisinopril TAB* 10 MG PO SCH ×3 (00:03→20:54)
[2019-08-29] MEDS: Hydrochlorothiazide TAB* 25 MG PO SCH ×3 (00:03→20:54)
[2019-08-29] MEDS: Metoprolol Tartrate TAB* 50 mg PO SCH ×3 (00:04→20:55)
[2019-08-29] MEDS: Nicotine PATCH 21 MG/24 HR* PATCH TRANSDERM SCH ×2 (00:05→08:45)
[2019-08-29] MEDS: BuPROPion XL* 300 MG TAB.XL PO SCH (08:46)
[2019-08-29] MEDS: Calcium/Vitamin D TAB 250/125* TAB PO SCH (08:48)
[2019-08-29] MEDS: Atorvastatin* 20 MG TAB PO SCH (08:48)
[2019-08-29] MEDS: Vitamin THERAPEUTIC TAB PO SCH (08:48)
[2019-08-29] MEDS ORDERED: Amphetamine/Dextroamph ER(NF) 10 MG CAP.ER PO SCH (09:00)
--- NOTE | 2019-08-29 13:49 | HP ---
HISTORY AND PHYSICAL: DATE OF ADMISSION: 08/28/19 PROVIDER: Faith Verduzco NP, in Psychiatry. SUPERVISING PHYSICIAN: Jorge Scott MD * (DICTATED BY FAITH VERDUZCO NP) JUSTIFICATION FOR ADMISSION: The patient is in need of 24-hour supervision and care secondary to suicidal ideation. CHIEF COMPLAINT: "I can't afford to live...finances trigger emotional connections." HISTORY OF PRESENT ILLNESS: The patient is a 33-year-old, white male with a history of mood disorder and prior suicide attempts, who arrives on his own and is here on a voluntary status after going to the mental health clinic, parking in the parking garage and deciding that it might be a good idea to jump from the top of the garage. Osmar is a very talkative man. He enumerates many problems that he is having as well as many reasons why it is beyond his control to solve these problems. The first problem he names is that he is living at a deficit. He states that his finances are insecure, that he wants to find a job with a flexible schedule because he needs to get to his appointments, but he does not think that there are any jobs out there that he can get that have a flexible enough schedule that will pay him enough. 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 He states he just got his car fixed for $ 1500. 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 He has a phone bill to pay, a storage fee, and back taxes in [place] that he has to pay on a house. Apparently, he started a [employer] campaign to help pay those back taxes. He needs a flexible schedule so he can see his therapist Mariama every week, his psychiatrist typically once every 3 months, but he is now seeing Dr. Darnell once every month and his manager of case, Bill, 2 times a month. He thinks this phrase over and over again "if I can't afford to ..., then I don' t deserve ...." He states that these include things like "if I can't afford food, then I don't deserve food; if I can't afford a car, then I don't deserve a car." He recognizes that these are illogical statements and yet he seems at a loss to contradict the statements. He states he is currently happy with his medications now that he is taking Latuda. Yet he states his emotion regulation is poor. He states he cannot access his coping skills due to not being enrolled in a class related to coping skills. When mildly challenged about why he could not have those skills at his fingertips, he stated that actually he misses the interaction of his peers and apparently that causes him some difficulty in accessing his coping skills. Apparently, 4 weeks ago on a Tuesday, he took the remaining pills that he had, which included metoprolol, lisinopril, clonidine, Viagra, and Benadryl. He was trying to end his life. He stated "I was trying to send my body into bradycardia." He also states "I know my methods are getting more and more lethal." I asked him what he skills he would recommend to someone who was in his situation and he stated all the coping skills that he already knows and to have hope. I asked him what problem he would like to solve most and he very poetically stated "how do I make a dream into reality" and gazed off out the window. PAST PSYCHIATRIC HISTORY: Since 2003, this is his 7th or 8th admission to [facility]. He was also at the hospital in [place], [place], at [facility] for 7 days for an overdose on his medications in the context of severe depression. Prior to that, he states he had attempted suicide one other time. He cannot state when it was. At this time, his plan to suicide is to jump from the parking garage, but he feels as though the threat of other methods continues to become stronger. He sees Dr. Darnell at [facility] and he sees Mariama Baker LCSW, as his therapist. PAST MEDICAL HISTORY: Osmar has hypertension and migraine headaches. MEDICATIONS: He takes: 1. Atorvastatin 20 mg daily. 2. Wellbutrin XL 300 mg daily. 3. Calcium and vitamin D 1 tablet daily. 4. Clonidine 0.2 at bedtime. 5. Depakote 500 mg b.i.d. 6. Hydrochlorothiazide 12.5 mg b.i.d. 7. Hydroxyzine 10 mg at bedtime. 8. Lisinopril 10 mg b.i.d. 9. Lurasidone 80 mg at bedtime. 10. Metoprolol 50 mg twice a day. 11. Nicotine patch at this time as he is a smoker. ALLERGIES: He has no known drug allergies. FAMILY HISTORY: He is the only child from his parents and denies any family history of mental illness. SOCIAL HISTORY: Osmar is to a woman named Nia. 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 Finances are difficult. He is encouraged by his to work more, but he would like to spend time with her. At the time of his last visit, he could not pay his student loans and they were in default. He denies any legal problems. He also owes back taxes on a house in [place]. REVIEW OF SYSTEMS: The patient reports feeling fatigued. He denies shortness of breath, heat or cold intolerance, chest pain or abdominal pain. He denies neurological symptoms. He denies fevers or changes in weight. PHYSICAL EXAMINATION APPEARANCE: Well appearing. VITAL SIGNS: On 08/29/19 at 0800, temperature was 97.2, pulse 70, respirations 16, O2 sat on room air 100%, blood pressure 97/64. HEENT: Head and face: Normal head and face inspection. Eyes: Normal. EOMI. Conjunctivae clear. NECK: Supple. No nuchal rigidity. NEUROLOGICAL: Normal. SKIN: Warm and dry. LABORATORY DATA: These data are largely within normal limits. Exceptions include white blood cells high at 15.9, absolute neutrophils high at 12.3, absolute monocytes high at 1.2, chloride low at 99, creatinine high 1.91. Urine contains 2+ protein, trace ketones, 1+ blood, trace leukocyte esterase, 1 + urine white blood cells, 1+ urine red blood cells, and present hyaline casts. Toxicology screen is positive for amphetamines as outpatient he does take 5 mg of Adderall. MENTAL STATUS EXAMINATION: Osmar is a 5-foot 8-inch, 183-pound man with brown hair and a siddiqui. He is wearing scrubs and yellow hospital socks. His grooming is adequate. He sits calmly. He is cooperative. His speech is of normal rate, tone, and volume. It is somewhat excessive. He is dysthymic. He has a full range of affect. Thought processes appear to be logical and at a normal rate. He is free from delusions. He is suicidal, but he is not homicidal. He is not experiencing hallucinations. His insight is good. His judgment is fair. He is alert and oriented x4. DIAGNOSES: 1. Mood disorder, not otherwise specified. 2. Cluster B traits. IMPRESSION: Osmar is a 33-year-old white male who comes to the hospital after seeking treatment at [facility] and determining that he is interested in jumping off of the parking structure that is nearby. PLAN: The patient is admitted to the adult behavioral health unit and placed on 15- minute checks for his own safety. He is encouraged to participate in supportive milieu, individual and group therapies. Estimated length of stay is 5 to 7 days. We will titrate medications to efficacy if needed. We will be monitoring for mood and thought content. Discharge planning will include family involvement and outpatient providers. FAITH VERDUZCO, THEO [id number]/[facility] #: [id number] LOVELY
[2019-08-29] MEDS: Lurasidone(*) 80 MG TAB PO SCH (17:12)
[2019-08-29] MEDS: cloNIDine TAB* 0.1 MG PO SCH ×2 (20:51)
[2019-08-29] MEDS: hydrOXYzine HCL TAB* 10 MG PO SCH ×2 (20:54)
[2019-08-29] MEDS: Nicotine Patch Removal NOTE PATCH OFF SCH (20:57)
[2019-08-30 08:14] LABS: HDL Cholesterol 29.4 mg/dL
[2019-08-30] MEDS: Vitamin THERAPEUTIC TAB PO SCH (10:52)
[2019-08-30] MEDS: BuPROPion XL* 300 MG TAB.XL PO SCH (10:53)
[2019-08-30] MEDS: Divalproex ER TAB(*) 500 MG PO SCH ×2 (10:53→20:29)
[2019-08-30] MEDS: Atorvastatin* 20 MG TAB PO SCH (10:53)
[2019-08-30] MEDS: Nicotine PATCH 21 MG/24 HR* PATCH TRANSDERM SCH (10:54)
[2019-08-30] MEDS: Calcium/Vitamin D TAB 250/125* TAB PO SCH (10:55)
[2019-08-30] MEDS: Metoprolol Tartrate TAB* 50 mg PO SCH ×2 (11:00→20:29)
[2019-08-30] MEDS: Lisinopril TAB* 10 MG PO SCH ×2 (11:00→20:30)
[2019-08-30] MEDS: Hydrochlorothiazide TAB* 25 MG PO SCH ×2 (11:01→20:31)
--- NOTE | 2019-08-30 15:04 | PN ---
Subjective - Subjective Date of Service: 08/30/19 Service Type: 40034 Hosp care 25 min moderate complexity Subjective: Yvonne is found lying in bed with the door closed at 2:00pm. He agrees to sit up to meet with me and CHRIS Arredondo. He reports feeling irritable because he isn't allowed to smoke in here. He is dismissive of alternatives offered such as a nicotine patch and gum. Discussion centered around identifying poor coping strategies and replacing them with appropriate ones. Yvonne spends a lot of time ruminating about "why" and "what if". Objective - General Observations Appearance: Neat Appears Stated Age: Yes Stature: WNL Posture: WNL Eye Contact: Average Behavior/Activity: WNL - Interaction Observations Attitude Towards Examiner: Manipulative, Dismissive Stated Mood: Euthymic, Irritable Affect: Full Speech Pattern/Tone: Excessive Thought Process: Coherent, Circumstantial Perception: WNL Thought Content: WNL Thought Process: Lethality: Passive Wish Hallucination Type: None Delusion Type: None - Cognitive Function Orientation: A&O x 4 Level of Consciousness: Awake, Alert, Appropriate Cognition: WNL Estimated Intelligence: Normal Insight: Mostly Blames Others for Problems Ability to Make Reasonable Decisions: Mildly Impaired - Medication Compliance Cooperative with Inpatient Medication Regimen: Yes - Group Participation Participates in Group Activities: Yes Assessment - Assessment Merits Inpatient Hospitalization: For Immediate Safety Inpatient DSM-V Dx: F33.8 Clinical Impression: Yvonne is a 33 year old male with a diagnosis of a mood disorder and borderline personality disorder who comes to the ED with suicidal ideation. Plan - Plan Treatment Plan: Name: YVONNE NOVOA Birthdate: 1985 [id number] Continue same medications. Plan for discharge tomorrow. Challenge Yvonne to solve problems and use his coping skills rather than ruminate. Continued Medication Management: Continue Outpt Medication Medications: Current Medications Acetaminophen (Tylenol Tab*) 650 mg PO Q4H PRN PRN Reason: PAIN or TEMP > 101 F Al Hydrox/Mg Hydrox/Simethicone (Maalox Plus*) 30 ml PO Q4H PRN PRN Reason: INDIGESTION Atorvastatin Calcium (Lipitor*) 20 mg PO DAILY [facility] Last Admin: 08/30/19 10:53 Dose: 20 mg Bupropion HCl (Bupropion Xl*) 300 mg PO DAILY [facility] Last Admin: 08/30/19 10:53 Dose: 300 mg Calcium/Vitamin D (Oscal D Tab 250/125*) 1 tab PO DAILY [facility] Last Admin: 08/30/19 10:55 Dose: 1 tab Clonidine HCl (Catapres Tab*) 0.2 mg PO BEDTIME [facility] Last Admin: 08/29/19 20:51 Dose: 0.2 mg Divalproex Sodium (Depakote Er Tab(*)) 500 mg PO BID [facility] Last Admin: 08/30/19 10:53 Dose: 500 mg Hydrochlorothiazide (Hydrodiuril Tab*) 12.5 mg PO BID [facility] Last Admin: 08/30/19 11:01 Dose: Not Given Hydroxyzine HCl (Atarax Tab*) 10 mg PO BEDTIME [facility] Last Admin: 08/29/19 20:54 Dose: 10 mg Lisinopril (Prinivil Tab*) 10 mg PO BID [facility] Last Admin: 08/30/19 11:00 Dose: 10 mg Lurasidone HCl (Latuda) 80 mg PO 1700 [facility] Last Admin: 08/29/19 17:12 Dose: 80 mg Metoprolol Tartrate (Lopressor Tab*) 50 mg PO BID [facility] Last Admin: 08/30/19 11:00 Dose: 50 mg Multivitamins (Theragran Tab*) 1 tab PO DAILY [facility] Last Admin: 08/30/19 10:52 Dose: 1 tab Nicotine (Nicotine Patch 21 Mg/24 Hr*) 1 patch TRANSDERM DAILY [facility] Last Admin: 08/30/19 10:54 Dose: 1 patch Pharmacy Profile Note (Nicotine Patch Removal Note*) 1 note PATCH OFF 2100 [facility] Last Admin: 08/29/19 20:57 Dose: Not Given - Discharge Plan Discharge Plan: Outpatient Follow Up Outpatient Program: [facility]
[2019-08-30] MEDS: Lurasidone(*) 80 MG TAB PO SCH (17:59)
[2019-08-30] MEDS: hydrOXYzine HCL TAB* 10 MG PO SCH (20:30)
[2019-08-30] MEDS: cloNIDine TAB* 0.1 MG PO SCH (20:31)
[2019-08-30] MEDS: Nicotine Patch Removal NOTE PATCH OFF SCH (20:52)
[2019-08-31 08:31] VITALS: BP 126/67
[2019-08-31] MEDS: Lisinopril TAB* 10 MG PO SCH (09:08)
[2019-08-31] MEDS: Hydrochlorothiazide TAB* 25 MG PO SCH (09:08)
[2019-08-31] MEDS: Divalproex ER TAB(*) 500 MG PO SCH (09:08)
[2019-08-31] MEDS: Atorvastatin* 20 MG TAB PO SCH (09:08)
[2019-08-31] MEDS: BuPROPion XL* 300 MG TAB.XL PO SCH (09:08)
[2019-08-31] MEDS: Calcium/Vitamin D TAB 250/125* TAB PO SCH (09:09)
[2019-08-31] MEDS: Vitamin THERAPEUTIC TAB PO SCH (09:09)
[2019-08-31] MEDS: Metoprolol Tartrate TAB* 50 mg PO SCH (09:09)
[2019-08-31] MEDS: Nicotine PATCH 21 MG/24 HR* PATCH TRANSDERM SCH (09:11)
--- NOTE | 2019-08-31 11:28 | PN ---
BSU: Group Therapy Note - Service Type Service Type: 46298 Group Psychotherapy - Cognitive Behavioral Group Therapy ( CBT):Patient was attentive and participatory in CBT programming this morning, and remained in good behavioral control. Patient expressed positive insights regarding relevant treatment interventions and goals.
--- NOTE | 2019-09-13 10:39 | DS ---
DISCHARGE SUMMARY: DATE OF ADMISSION: 08/28/19 DATE OF DISCHARGE: 08/31/19 PROVIDER: Faith Verduzco NP in Psychiatry. SUPERVISING PHYSICIAN: Dr. Jorge Scott.* (DICTATED BY FAITH VERDUZCO NP) DIAGNOSES: Mood disorder, not otherwise specified and borderline personality disorder. CONDITION AT THE TIME OF DISCHARGE: Osmar is improved, psychiatrically cleared. He is stable. He participated in some groups and was social with peers. He is agreeable to discharge. He did well here psychiatrically. He did not change medications while he was here. MENTAL STATUS EXAMINATION: At the time of discharge, Osmar is frustrated, but cooperative with discharge. His eye contact is intermittently intense and avoidant. He is alert and oriented x4. His grooming is adequate. His speech pace is normal. His thought processes are logical. He is not psychotic or delusional. He denies AH, VH, SI, and HI. His insight and judgment are fair. He is willing to follow up and urged to see his therapist. DISCHARGE INSTRUCTIONS TO THE PATIENT: A. Medications: 1. Latuda 80 mg at dinner time. 2. Lisinopril/hydrochlorothiazide 10/12.5 one tablet twice a day. 3. Calcium carbonate/citrate plus vitamin D3 one tablet daily. 4. Atorvastatin 20 mg daily. B. Diet is regular. C. Activities as tolerated. He is a smoker, but he has declined a referral to the [place] [employer] [facility]uit[facility] at this time. If he decides to access this free service in the future, he can contact the Quitline at [phone]. There are no studies pending at the time of discharge. D. Followup care: He has appointments at [facility] , one on 08/31/19 at 2:[address] Darnell, one at 09/04/19 at 1:25 p.m. with Mariama Baker. He is also referred to Raine Cox NP to follow up as needed. E. Disposition: He is being discharged to his home that he shares with his . F. Substance abuse followup is not indicated. HOSPITAL COURSE: Part A: Chief Complaint: "I can't afford to live... finances trigger emotional connections." The patient is a 33-year-old white male with history of mood disorder and prior suicide attempts, who arrives on his own and is here on a voluntary status after going to the mental health clinic, parking in the parking garage and deciding that it might be a good idea to jump from the top of the garage. Osmar is a very talkative man. He enumerates many problems that he is having as well as many reasons why it is beyond his control to solve these problems. The first problem he named is that he is living at a financial deficit. He states that his finances are insecure that he wants to find a job with flexible schedule because he needs to get to his appointments, but he does not think that there are any jobs out there that he can get that have a flexible enough schedule that will pay him enough. 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 He states he just got his car fixed for $1500. 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 He has a phone bill to pay, a storage fee, and back taxes in [place] that he has to pay on a house. Apparently, he started a [employer] campaign to help pay those back taxes. He needs a flexible schedule so he can see therapist, Mariama, every week, his psychiatrist typically once every 3 months, but he is now seeing Dr. Darnell once every month and his complex case manager, Bill, 2 times a month. He thinks this phrase over and over again "if I can't afford to ..., then I don' t deserve ..." He states that these include things like "if I can't afford food , then I don't deserve food; if I can't afford a car, then I don't deserve a car." He recognizes that these are illogical statements and yet he seems at a loss to contradict them. He states he is currently happy with his medications now that he is taking Latuda, yet he states his emotion regulation is poor. He states he cannot access his coping skills due to not being enrolled in a class related to coping skills. When mildly challenged about why he could not have those skills at his fingertips, he stated that actually he misses the interaction of his peers and apparently that causes him some difficulty in accessing his coping skills. Apparently, 4 weeks ago on a Tuesday, he took the remaining pills that he had, which have included metoprolol, lisinopril, clonidine, Viagra, and Benadryl. He was trying to end his life. He stated "I was trying to send my body into bradycardia." He also states "I know my methods are getting more and more lethal." I asked him what skills he would recommend to someone who was in his situation and he stated all the coping skills that he already knows and to have hope. I asked him what problem he would like to solve most and he very politically stated "how do I make a dream into reality?" and gazed off out the window. Part B: Psychiatric treatment was rendered. The patient was admitted to the adult behavioral unit and placed on 15-minute checks for safety. Osmar himself did well on the unit and went to groups. He interacted with peers well. He did not necessarily interact with all staff well, as there is personal history between himself and another staff member. This needed to be addressed before Osmar could be discharged. In order to address it, we had Dr. Jorge Scott and Israel Gomes, MSN, speak with Osmar to discuss his inappropriate behavior on the unit toward another member of staff. This seemed to indicate to Osmar that he needed to be careful of his behavior and that he needed to consider that his behavior, which was considered purposeful and perhaps predatory, was unwelcome on the unit. There were no med changes made. He is on an antipsychotic. He is on Latuda. His HA1c is 4.7, triglycerides 197, cholesterol 164, LDL cholesterol 95, HDL cholesterol 29.4. Incidentally, his TSH is 0.84. We did not meet with his family, but Osmar was agreeable to discharge. There were no consults entered for him. He is improved. He is less suicidally focused. He is eager to get back to work and to see his and he is future- oriented. FAITH VERDUZCO, THEO [id number]/[facility] #: [id number] [facility]ie
== END 2019-08-31 13:45 | disposition home or self-care (01) | DRG 753 ==
LOC: ED 13:39 → BSU 22:38
PROVIDERS: ADMIT Psychiatry & Neurology Psychiatry; ATTEND Psychiatry & Neurology Psychiatry
PROC: GZHZZZZ Group Psychotherapy (ICD-10-PCS; principal; 2019-08-31)
DX: F39 Unspecified mood [affective] disorder (principal); R45.851 Suicidal ideations; I10 Essential (primary) hypertension; F41.9 Anxiety disorder, unspecified; F90.9 Attention-deficit hyperactivity disorder, unspecified type; G43.909 Migraine, unspecified, not intractable, without status migrainosus; F31.9 Bipolar disorder, unspecified; F60.3 Borderline personality disorder; F17.210 Nicotine dependence, cigarettes, uncomplicated; Z91.5 Personal history of self-harm; Z88.1 Allergy status to other antibiotic agents; Z88.8 Allergy status to other drugs, medicaments and biological substances
CPT/HCPCS: 36415; 80053; 80061; 80164; 80307; 80320; 80329; 81003; 81015; 82550; 83036; 84443; 85025; 87086; 90853; 93005; 99222; 99232; 99238; 99284; A9270-GY; G0480